=== PATIENT | female | born 1970 | race Caucasian/White ===

== ENCOUNTER 2017-10-22 15:09 | Outpatient (CLI) | payer OTHER ==
[2017-10-22 16:10] LABS: Hemoglobin 13.2 g/dL (12.0-16.0); Mean Corpuscular HGB CONC 34.5 g/dL (32.0-36.0); Mean Corpuscular Hemoglobin 29.7 pg (27.0-31.0); Mean Corpuscular Volume 86.2 fl (81.0-99.0); Mean Platelet Volume 8.2 fL (7.4-10.4); Platelet Count 276 thou/uL (130-400); RBC Distribution Width 11.9 % (11.5-14.5); Red Blood Cell (RBC) Count 4.44 mill/uL (4.20-5.40)
[2017-10-22 16:22] LABS: BHCG - Serum Negative (NEGATIVE); Pregs Control Background? CLEAR/WHITE (CLR/WHITE); Pregs Control Bar Appear? YES (CONTROL BAR)
== END 2017-10-22 15:10 | disposition home or self-care (01) ==
LOC: LABBT 15:09
PROVIDERS: ATTEND Surgery
DX: Z01.812 Encounter for preprocedural laboratory examination (principal); C50.919 Malignant neoplasm of unspecified site of unspecified female breast
CPT/HCPCS: 84703; 85027; 93005; 93010

== ENCOUNTER 2017-10-23 05:52 | Day surgery (SDC) | payer OTHER ==
[2017-10-22 15:25] VITALS: BMI 30.3
[2017-10-23] MEDS ORDERED: CEFAZOLIN/Water 2 GM/20 ML SYRINGE ONE (06:08)
[2017-10-23] MEDS ORDERED: Bupivacaine/Epinephrine 0.25% 30 ML VIAL ONE (06:33)
[2017-10-23] MEDS ORDERED: Midazolam HCl 2 mg/2 ml Vial ONE ×2 (07:02→07:08)
[2017-10-23] MEDS ORDERED: Fentanyl 250 MCG/5 ML VIAL ONE ×2 (07:08→08:46)
--- NOTE | 2017-10-23 09:00 | OP ---
PREOPERATIVE DIAGNOSIS: Breast cancer. SURGEON: Audie Liang M.D. PROCEDURE PERFORMED: MediPort placement. INDICATIONS: This is a 46-year-old female recently diagnosed to have node positive breast cancer nee ds chemotherapy. FINDINGS: Good backflow of venous blood. J-wire threaded easily. DESCRIPTION OF PROCEDURE: After informed consent was obtained, the patient was taken to the operatin g room and given general mask anesthesia and placed in the supine position. Her chest and neck were prepped and draped in the usual fashion and then she was placed in Trendelenburg position. Local ane sthesia infiltrated subcutaneously and deep and introducer needle was inserted in left subclavian wit h good backflow of venous blood. J-wire threaded easily. Fluoroscopy was used which showed good kimberli cement of the wire in the superior vena cava. Skin and subcu was anesthetized with local anesthesia. Transverse chest wall incision was performed. Subcu divided sharply with electrocautery down to th e fascia and a pocket created on the fascia with electrocautery. The tunneling device used to connec t the two incisions. The catheter brought through the tunnel. The catheter attached to the MediPort . The system was flushed. The peel-away introducer inserted over the wire. The wire removed. The catheter inserted through the peel-away introducer and the peel-away introducer removed. Initial x-r ay showed that the catheter was going across the chest into the right subclavian and was tilted up an d I could not get backflow of venous blood, so under fluoroscopy repositioned the catheter to go into the superior vena cava and aspirated system, good backflow of venous blood, flushed with heparinized saline. The subcutaneous reapproximated with interrupted 3-0 Vicryl. Skin closed with interrupted 4-0 Rapide. Dermabond applied. The patient tolerated the procedure well and was transferred to [facility] in good condition. Sponge and needle count verified correct x2.
--- NOTE | 2017-10-23 09:26 | RAD ---
CHEST 1 VIEW: Date: 10/23/17 HISTORY: MediPort placement. COMPARISON: 01/24/16. FINDINGS: Cardiac silhouette is magnified and enlarged. Pulmonary vasculature is engorged with patchy bibasilar infiltrates. Mediastinum is midline. Tip of a right subclavian MediPort is directed superiorly at th e level of the superior vena cava. No evidence of pneumothorax. IMPRESSION: 1. Distal tip of the left subclavian MediPort is directed superiorly within the superior vena cava. 2. Cardiomegaly with mild pulmonary vascular congestion. POS: [facility]
[2017-10-23] MEDS ORDERED: HYDROcodone/Acetaminophen 5/325 mg Tablet ONE (09:39)
[2017-10-23] MEDS ORDERED: Lidocaine 1% PF 5 ML VIAL ONE (14:17)
[2017-10-23] MEDS ORDERED: PROPOFOL 200 MG/20 ML VIAL ONE (14:17)
== END 2017-10-23 10:20 | disposition home or self-care (01) ==
LOC: SDC 05:52
PROVIDERS: ATTEND Surgery
PROC: 02HV33Z Insertion of Infusion Device into Superior Vena Cava, Percutaneous Approach (ICD-10-PCS; principal; 2017-10-23)
DX: C50.911 Malignant neoplasm of unspecified site of right female breast (principal); C77.9 Secondary and unspecified malignant neoplasm of lymph node, unspecified; I10 Essential (primary) hypertension; M32.9 Systemic lupus erythematosus, unspecified; F32.9 Major depressive disorder, single episode, unspecified; E11.9 Type 2 diabetes mellitus without complications; Z88.2 Allergy status to sulfonamides; Z88.8 Allergy status to other drugs, medicaments and biological substances; Z91.048 Other nonmedicinal substance allergy status; Z79.899 Other long term (current) drug therapy
CPT/HCPCS: 71045; 96374; C1788; J1642; J2001; J2250; J2704; J3010

== ENCOUNTER 2017-10-24 12:04 | Outpatient (CLI) | payer OTHER ==
[2017-10-24] MEDS ORDERED: Iopamidol 370 76% 100 ML VIAL ONE (13:36)
--- NOTE | 2017-10-24 15:32 | CT ---
CONTRAST ENHANCED CT IMAGES OF CHEST AND ABDOMEN AND PELVIS: HISTORY: A 46-year-old female with a history of breast cancer. FINDINGS: Contrast-enhanced CT images of the chest, abdomen, and pelvis are obtained. Surgical change is seen in the right breast. Multiple enhancing metastatic right axillary lymph node s are seen. The largest of these right axillary lymph nodes measures 1.9 x 2.6 cm. There is a left subclavian MediPort catheter in place. Numerous small lytic thoracic, lumbar, and sacral lesions seen compatible with tiny likely metastatic lesions throughout the spine. There is an approximately 3 mm nodular density along the posterior as pect of the left lower lobe of the lung with additional possible right lung base 2-3 mm nodular densi ties also seen. These may represent possible lung metastatic lesions, although they are too small to characterize. No definite evidence of mediastinal lymphadenopathy is seen. CT abdomen and pelvis demonstrate extensive too numerous to count, peripherally enhancing hepatic les ions compatible with extensive hepatic metastases. The spleen is unremarkable. The gallbladder and pancreas are unremarkable. Adrenal glands and kidneys are unremarkable. There is no evidence of par aaortic lymphadenopathy. No definite evidence of bowel obstruction seen. There does appear to be so me mildly enlarged right lower quadrant intraperitoneal mesenteric lymph nodes. The largest of these measures approximately 9 mm. Numerous descending and sigmoid colonic diverticula are present. IMPRESSION: 1. Surgical changes seen in the right breast with right axillary lymphadenopathy. 2. Tiny pulmonary parenchymal nodules too small to characterize, although considering other findings , metastatic disease cannot be excluded. 3. Numerous hepatic metastases. 4. Extensive lucency is seen throughout the thoracic, lumbar, and sacrum concerning for metastatic d isease. There are also some sclerotic changes seen in the medial aspect of the left iliac bone just lateral to the left SI joint. This may also represent possible sclerotic metastatic disease. Findings called to Dr. Hinton at 1:39 p.m. on 10/24/17. CODE CR POS: [facility]
== END 2017-10-24 12:05 | disposition home or self-care (01) ==
LOC: CT 12:04
PROVIDERS: ATTEND Internal Medicine Hematology & Oncology
DX: Z51.11 Encounter for antineoplastic chemotherapy (principal); C50.919 Malignant neoplasm of unspecified site of unspecified female breast; R59.0 Localized enlarged lymph nodes; C78.7 Secondary malignant neoplasm of liver and intrahepatic bile duct; R91.8 Other nonspecific abnormal finding of lung field; M89.9 Disorder of bone, unspecified; I08.1 Rheumatic disorders of both mitral and tricuspid valves; Z98.890 Other specified postprocedural states
CPT/HCPCS: 71260; 74177; 93306

== ENCOUNTER 2017-12-19 08:16 | Outpatient (CLI) | payer OTHER ==
--- NOTE | 2017-12-19 10:46 | RAD ---
FLUOROSCOPIC GUIDED LEFT CHEST WALL PORT TUBE CHECK: INDICATIONS: Malfunctioning port. TOTAL FLUOROSCOPIC TIME: 0.8 minutes TECHNIQUE/FINDINGS: The site overlying the port site was cleansed. The site was accessed with a 1.5 inch Eagle needle. The port flushed and aspirated appropriately. There was administration of 3 mL of Isovue-300, which demonstrated a patent left subclavian chest wall port, with the tip in the region of the SVC. There was no evidence of catheter pinch-off within the left subclavian area. The catheter was then flushed with normal saline. The catheter was then loaded with appropriate heparin. The patient tolerated t he procedure without difficulty. IMPRESSION: Mediport check demonstrates that the left subclavian chest wall port is intact without evidence of fi brin sheath or left subclavian pinch-off. The difficulty may have been in accessing the left chest w all port, as it was difficult to access the port by palpation. The port is slightly deep within the subcutaneous layer, making palpation difficult. The port was eventually accessed by a combination of palpation and fluoroscopic guidance, utilizing a 1.5 inch Eagle needle. The port access site was th en marked following the procedure, with a permanent marker, to give parameters of the port access sit e to the infusion nurse. POS: [facility]
== END 2017-12-19 08:17 | disposition home or self-care (01) ==
LOC: RAD 08:16
PROVIDERS: ATTEND Internal Medicine Hematology & Oncology
DX: T82.868A Thrombosis due to vascular prosthetic devices, implants and grafts, initial encounter (principal); T82.9XXA Unspecified complication of cardiac and vascular prosthetic device, implant and graft, initial encounter; C50.919 Malignant neoplasm of unspecified site of unspecified female breast
CPT/HCPCS: 76000; J1642

== ENCOUNTER 2018-01-20 09:27 | Outpatient (CLI) | payer OTHER ==
[2018-01-20] MEDS ORDERED: Iopamidol 370 76% 100 ML VIAL ONE (10:57)
--- NOTE | 2018-01-20 11:50 | CT ---
CT CHEST WITH IV CONTRAST CT ABDOMEN WITH IV CONTRAST CT PELVIS WITH IV CONTRAST: HISTORY: A 47-year-old female with malignant neoplasm of lower left quadrant of the right female breast. [place] st cancer with mets to bone and liver. The patient is currently on chemotherapy. COMPARISON: 10/24/17. FINDINGS: There has been interval resolution of right axillary lymphadenopathy seen on the previous exam. Inte rval improvement is seen in the liver metastasis with decrease in number and size of the liver lesion s. The largest liver lesion in the right lobe of the liver currently measures 17 mm (previously 28 m m). Multiple lytic lesions are noted in the skeleton noted on the previous exam demonstrate peripheral sc lerosis indicating response to treatment. No intrathoracic or abdominopelvic lymphadenopathy is seen. Tiny pulmonary nodules are stable, the l argest measuring 3 mm. No pleural or pericardial effusions or ascites is identified. The spleen, pancreas, adrenal glands, and right kidney are normal. Small cyst in the left kidney aga in seen. No gallstones are identified. The small bowel loops are not abnormally dilated. A normal- appearing appendix is present. There is colonic diverticulosis. Uterus and ovaries are present. IMPRESSION: Interval improvement since 10/24/17 with partial/incomplete response to therapy. POS: [facility]
== END 2018-01-20 09:28 | disposition home or self-care (01) ==
LOC: CT 09:27
PROVIDERS: ATTEND Internal Medicine Hematology & Oncology
DX: Z51.11 Encounter for antineoplastic chemotherapy (principal); C78.7 Secondary malignant neoplasm of liver and intrahepatic bile duct; C79.51 Secondary malignant neoplasm of bone; C50.311 Malignant neoplasm of lower-inner quadrant of right female breast; Z79.899 Other long term (current) drug therapy
CPT/HCPCS: 71260; 74177; 93306

== ENCOUNTER 2018-02-13 14:22 | Outpatient (CLI) | payer OTHER ==
[2018-02-13 15:47] LABS: ALT (SGPT) 27 U/L (8-55); AST (SGOT) 37 U/L (5-34); Albumin 3.5 g/dL (3.5-5.0); Alkaline Phosphatase 84 U/L (40-150); Anion Gap 15 mmol/L (10-20); BUN (Urea Nitrogen) 9 mg/dL (7.0-18.7); Bilirubin, Total 0.5 mg/dL (0.2-1.2); Calc. Creatinine Clearance 0 mL/min (70-130); Calcium 8.8 mg/dL (7.8-10.44); Carbon Dioxide 27 mmol/L (22-29); Chloride 102 mmol/L (98-107); Estimated GFR-MDRD 88; Globulin 2.4 g/dL (2.4-3.5); Glucose 188 mg/dL (70-105); Potassium 3.8 mmol/L (3.5-5.1); Protein, Total 5.9 g/dL (6.0-8.3); Sodium 140 mmol/L (136-145)
[2018-02-13 17:11] LABS: #Lymphocytes 1.1 thou/uL (1.20-3.40); #Monocytes 0.5 thou/uL (0.11-0.59); #Neutrophils 4.1 thou/uL (1.40-6.50); %Basophils 0.2 % (0.0-1.0); %Eosinophils 0.5 % (0.0-10.0); %Lymphocytes 19.9 % (21.0-51.0); %Monocytes 8.4 % (0.0-10.0); %Neutrophils 71.1 % (42.0-75.0); Anisocytosis SLIGHT = 6-15 cells (100X) (0-5/hpf); Hemoglobin 8.5 g/dL (12.0-16.0); MDiff Complete? YES; Mean Corpuscular HGB CONC 34.1 g/dL (32.0-36.0); Mean Corpuscular Volume 99.7 fL (78.0-98.0); Mean Platelet Volume 8.8 fL (7.4-10.4); PLT Morphology Comment Appears Decreased; Platelet Count 124 thou/uL (130-400); RBC Distribution Width 17.6 % (11.5-14.5); Red Blood Cell (RBC) Count 2.49 mill/uL (4.20-5.40); White Blood Cell (WBC) Count 5.8 thou/uL (4.8-10.8)
== END 2018-02-13 14:23 | disposition home or self-care (01) ==
LOC: LABBT 14:22
PROVIDERS: ATTEND Surgery
DX: Z01.812 Encounter for preprocedural laboratory examination (principal); C50.919 Malignant neoplasm of unspecified site of unspecified female breast; Z95.828 Presence of other vascular implants and grafts
CPT/HCPCS: 80053; 85025

== ENCOUNTER 2018-02-17 06:03 | Day surgery (SDC) | payer OTHER ==
[2018-02-13 14:58] VITALS: BMI 30.9
[2018-02-17] MEDS ORDERED: CEFAZOLIN/Water 2 GM/20 ML SYRINGE ONE (06:19)
[2018-02-17] MEDS ORDERED: Lidocaine 2% 10 ML INJ ONE (06:37)
[2018-02-17] MEDS ORDERED: Bupivacaine/Epinephrine 0.25% 30 ML VIAL ONE (06:37)
[2018-02-17] MEDS ORDERED: Fentanyl 100 MCG/2 ML VIAL ONE (06:48)
[2018-02-17] MEDS ORDERED: Midazolam HCl 2 mg/2 ml Vial ONE (07:02)
[2018-02-17] MEDS ORDERED: Propofol 500 MG/50 ML VIAL ONE (07:16)
--- NOTE | 2018-02-17 08:34 | OP ---
DATE OF PROCEDURE: 02/17/2018 PREOPERATIVE DIAGNOSIS: Painful MediPort. SURGEON: Audie Liang M.D. PROCEDURE PERFORMED: Removal and replacement of MediPort. INDICATIONS: This is a 47-year-old female who has metastatic breast cancer, needs another year of ch emotherapy. Her MediPort recently has been very painful and when they access it and infuse chemother apy it creates a severe burning pain in the tissue. They were unable to draw blood, but the tube tala dy showed that it was in good placement. FINDINGS: Good backflow of venous blood. J-wire threaded easily. Right subclavian on the left. Th ere was cloudy fluid around the MediPort that was sent for culture and the tip was also cultured. PROCEDURE: After informed consent was obtained, the patient was taken to the operating room and give n total intravenous anesthesia, placed in supine position. Her chest and neck were prepped and drape d in usual fashion. Local anesthesia infiltrated subcutaneously and deep. An introducer needle was inserted right subclavian with good backflow of venous blood. J-wire threaded easily. Fluoroscopy w as used, showed good placement in superior vena cava. The tubing was tunneled between the 2 incision s, connected to the MediPort. The MediPort was secured to the pectoralis fascia with interrupted 2-0 Prolene suture. The catheter was cut to size. The peel-away introducer was inserted over the wire. The wire was removed. The catheter inserted through the peel-away introducer and the peel-away int roducer removed. Fluoroscopy again performed that showed good placement in superior vena cava. The system was aspirated. Good backflow of venous blood, flushed with heparinized saline. Subcutaneous reapproximated with interrupted 3-0 Vicryl. Skin closed with a running subcuticular 4-0 Rapide. Rodrigue mabond applied. I then moved to the left side. Local anesthesia infiltrated subcutaneously and deep . A transverse skin incision was performed through the old scar. Subcutaneous divided sharply and t here was this fluid around the MediPort that was cloudy. I was not sure if this was infected fluid o r fat necrosis. This was sent for culture. The MediPort was removed including the catheter intact. The cavity was thoroughly irrigated with saline. A single 3-0 Vicryl was placed to occlude the acce ss tract of the catheter with a figure of eight. The wound was packed open with Betadine gauze and c overed with a dry gauze. The patient tolerated the procedure well and was transferred to recovery in good condition. Sponge, needle count verified correct x2.
[2018-02-17] MEDS ORDERED: HYDROcodone/Acetaminophen 5/325 mg Tablet ONE (10:06)
--- NOTE | 2018-02-17 10:47 | RAD ---
AP VIEW CHEST: INDICATIONS: History of Mediport placement. COMPARISON: 10/23/2017 FINDINGS: Since the comparison examination, the previously seen left subclavian chest wall port has been remove d. There is a new right subclavian chest wall port in place. The catheter appears intact and projec ts to the level of the cavoatrial junction. The lungs are clear. Cardiomegaly is stable. No pneumo thorax is demonstrated. No acute osseous abnormality is noted. IMPRESSION: 1. Interval placement of a new right subclavian chest wall port without evidence of complication. 2. Previously seen left chest wall port has been removed. 3. Stable cardiomegaly. 4. No pneumothorax. POS: [facility]
[2018-02-17] MEDS ORDERED: PROPOFOL 200 MG/20 ML VIAL ONE (15:00)
[2018-02-17] MEDS ORDERED: Lidocaine 1% PF 5 ML VIAL ONE (15:00)
== END 2018-02-17 10:35 | disposition home or self-care (01) ==
LOC: SDC 06:03
PROVIDERS: ATTEND Surgery
PROC: 05H633Z Insertion of Infusion Device into Left Subclavian Vein, Percutaneous Approach (ICD-10-PCS; principal; 2018-02-17)
DX: T82.848A Pain due to vascular prosthetic devices, implants and grafts, initial encounter (principal); C50.919 Malignant neoplasm of unspecified site of unspecified female breast; I10 Essential (primary) hypertension; Z79.899 Other long term (current) drug therapy; Z88.2 Allergy status to sulfonamides
CPT/HCPCS: 71045; 87070; 87071; 87205; C1788; J1642; J2001; J2250; J2704; J3010

== ENCOUNTER 2018-06-02 13:00 | Outpatient (CLI) | payer OTHER, SELFPAY ==
[2018-06-02] MEDS ORDERED: Iopamidol 370 76% 100 ML VIAL ONE (13:32)
--- NOTE | 2018-06-02 16:30 | CT ---
CHEST CT WITH CONTRAST: ABDOMEN CT WITH CONTRAST: PELVIS CT WITH CONTRAST: HISTORY: Breast cancer with metastases to the spine, ribs, and liver. The patient is currently off chemothera py. Evaluate for progression of disease. COMPARISON: 01/20/2018 and 10/24/2017 TECHNIQUE: Chest, abdomen, and pelvis CT are performed with IV and oral contrast. Reformatted images are submit christopher for interpretation. FINDINGS: CHEST: No mediastinal mass, lymphadenopathy, or hematoma. Heart size is within normal limits. No p ericardial effusion. The thoracic and abdominal aorta have a normal caliber. No periaortic fat stra nding. The trachea and central bronchi are patent. There is a 3 mm nodule in the left lower lobe. No suspi cious nodules in the left upper lobe. No suspicious nodules in the right upper lobe or right middle lobe. There is a 2 mm nodule in the right lower lobe. ABDOMEN: Fatty infiltration of the liver. There are patchy areas of enhancement, with central hypoa ttenuation, suggesting hepatic metastases. The overall size and number of metastatic lesions in the liver has significantly reduced when compared to the examination from October 2017. When compared to t he examination from January 2018, there appears to be stability in terms of the size of what was previou sly the largest metastatic lesion, in the posterior segment, right hepatic lobe. Currently, this les ion measures 1.1 x 1.1 cm (previously measuring 1.7 x 0.8 cm). Additional smaller metastatic lesions are noted involving the hepatic dome. These lesions are less than a centimeter in size. There are patchy areas of enhancement in the liver parenchyma, which are nonspecific. The spleen, pancreas, and adrenal glands are unremarkable. Stable atrophy of the pancreas. The gall bladder is unremarkable. Symmetric enhancement of the kidneys. No obstructive uropathy. No retroperitoneal mass, lymphadenopathy, or hematoma. Symmetric attenuation of the psoas muscles. No gastrohepatic, retrocrural, or periportal lymphadenopathy. No mesenteric mass, lymphadenopathy, free air, or free fluid. The gastric mucosa, duodenum, and multiple normal caliber small bowel loops are noted. The ileocecal junction is normal. There is scattered fecal material in a nondistended, nondilated colon. There i s evidence of diverticulosis in the left hemicolon. No diverticulitis. Normal caliber appendix. PELVIS: No mass, lymphadenopathy, free air, or free fluid. Previously noted multifocal osseous metastases is less evident on the current examination. IMPRESSION: 1. Stable lung parenchymal nodules, which are too small to further characterize. 2. Hepatic steatosis. 3. Essentially stable metastatic lesions in the liver. The largest lesion is in the posterior segme nt, right hepatic lobe, and has not appreciably changed in size. There are some subcentimeter hypode nsities in the hepatic dome, which are felt to represent areas of metastases. 4. No definite evidence of osseous metastases. POS: [facility]
== END 2018-06-02 13:01 | disposition home or self-care (01) ==
LOC: CT 13:00
PROVIDERS: ATTEND Internal Medicine Hematology & Oncology
DX: Z51.11 Encounter for antineoplastic chemotherapy (principal); C50.311 Malignant neoplasm of lower-inner quadrant of right female breast; C78.7 Secondary malignant neoplasm of liver and intrahepatic bile duct; R91.8 Other nonspecific abnormal finding of lung field; I08.1 Rheumatic disorders of both mitral and tricuspid valves; Z79.899 Other long term (current) drug therapy
CPT/HCPCS: 71260; 74177; 93306

== ENCOUNTER 2018-06-09 12:58 | Outpatient (CLI) | payer OTHER ==
--- NOTE | 2018-06-09 16:10 | NM ---
MUGA SCAN: DATE: 06/09/18 HISTORY: 47-year-old female with breast cancer, encounter for follow-up examination after completed treatment for malignant neoplasm. RADIOPHARMACEUTICAL: 28.1 mCi technetium-99m labeled RBCs injected intravenously. FINDINGS: The left ventricular ejection fraction measures 53%. The wall motion is normal. IMPRESSION: LVEF is 53%. POS: [facility]
== END 2018-06-09 12:59 | disposition home or self-care (01) ==
LOC: NM 12:58
PROVIDERS: ATTEND Internal Medicine Hematology & Oncology
DX: C50.311 Malignant neoplasm of lower-inner quadrant of right female breast (principal)
CPT/HCPCS: 78472; A9604

== ENCOUNTER 2018-06-11 08:38 | Day surgery (SDC) | payer OTHER, SELFPAY ==
[2018-06-11] MEDS ORDERED: Sodium Chloride 0.9% 20 ML ONE (08:48)
[2018-06-11] MEDS ORDERED: TRASTUZUMAB IVPB SCH ×3 (09:00→09:30)
[2018-06-11] MEDS ORDERED: SODIUM CHLORIDE 0.9% IVPB SCH ×3 (09:00→09:30)
[2018-06-11 09:04] VITALS: BP 140/82; TEMP 99.6
== END 2018-06-11 12:19 | disposition home or self-care (01) ==
LOC: ONC/OP 08:38
PROVIDERS: ATTEND Internal Medicine Hematology & Oncology
DX: Z51.11 Encounter for antineoplastic chemotherapy (principal); C50.311 Malignant neoplasm of lower-inner quadrant of right female breast; D70.1 Agranulocytosis secondary to cancer chemotherapy; Z88.2 Allergy status to sulfonamides
CPT/HCPCS: 96413; J1642; J7050; J9355

== ENCOUNTER 2018-06-11 12:49 | Outpatient (CLI) | payer OTHER ==
--- NOTE | 2018-06-11 15:59 | MRI ---
MRI BRAIN WITHOUT AND WITH CONTRAST: Comparison: CT chest, abdomen, and pelvis 06-02-18. History: Slurred speech, evaluate for intracranial metastases. Technique: Multiplanar, multisequence MRI images were obtained of the brain without and with IV contr ast. FINDINGS: There are innumerable scattered enhancing masses throughout both cerebral and cerebellar hemispheres consistent with diffuse intracranial metastatic disease. The largest lesion is seen in the right temp oral lobe measuring 1.6 cm in size. Edema is seen surrounding the majority of these masses. This oren a is greatest in the left frontal lobe and bilateral temporal lobes. No midline shift is seen. There is no evidence of hydrocephalus or extraaxial fluid collections. No intracranial hemorrhage is seen. No restricted diffusion is seen. The expected flow voids are present. Mucous retention cysts are seen in the left maxillary sinus. The calvarium and overlying soft tissues are unremarkable. A small amount of fluid is seen in the right mastoid air cells. IMPRESSION: Innumerable intracranial metastatic foci throughout the brain as above. POS: [facility]
== END 2018-06-11 12:50 | disposition home or self-care (01) ==
LOC: BICMRI 12:49
PROVIDERS: ATTEND Internal Medicine Hematology & Oncology
DX: R51 Headache (principal); R20.2 Paresthesia of skin; C50.919 Malignant neoplasm of unspecified site of unspecified female breast
CPT/HCPCS: 70553; 82565

== ENCOUNTER 2018-07-02 12:44 | Day surgery (SDC) | payer OTHER ==
[2018-07-02] MEDS ORDERED: Sodium Chloride 0.9% 30 ML ONE (12:57)
[2018-07-02] MEDS ORDERED: Sodium Chloride 0.9% 20 ML ONE (13:01)
[2018-07-02 13:11] VITALS: BP 128/66; TEMP 98
[2018-07-02] MEDS ORDERED: SODIUM CHLORIDE 0.9% IVPB SCH (13:30)
[2018-07-02] MEDS ORDERED: TRASTUZUMAB IVPB SCH (13:30)
== END 2018-07-02 15:21 | disposition home or self-care (01) ==
LOC: ONC/OP 12:44
PROVIDERS: ATTEND Internal Medicine Hematology & Oncology
DX: Z51.11 Encounter for antineoplastic chemotherapy (principal); C50.311 Malignant neoplasm of lower-inner quadrant of right female breast; D70.1 Agranulocytosis secondary to cancer chemotherapy; Z88.2 Allergy status to sulfonamides
CPT/HCPCS: 96413; J1642; J7050; J9355

== ENCOUNTER 2018-10-08 00:17 | Day surgery (SDC) | payer BC ==
[2018-10-08] MEDS ORDERED: TRASTUZUMAB IVPB SCH (02:45)
[2018-10-08] MEDS ORDERED: SODIUM CHLORIDE 0.9% IVPB SCH (02:45)
[2018-10-08] MEDS ORDERED: Sodium Chloride 0.9% 20 ML ONE (13:22)
== END 2018-10-08 15:35 | disposition home or self-care (01) ==
LOC: ONC/OP 00:17
PROVIDERS: ATTEND Internal Medicine Hematology & Oncology
DX: Z51.11 Encounter for antineoplastic chemotherapy (principal); C50.311 Malignant neoplasm of lower-inner quadrant of right female breast; D70.1 Agranulocytosis secondary to cancer chemotherapy; Z88.2 Allergy status to sulfonamides
CPT/HCPCS: 96413; J1642; J7050; J9355

== ENCOUNTER 2018-10-22 12:51 | Outpatient (CLI) | payer BC ==
[~2018-10-22 12:51] MED LIST: Gadobenate Dimeglumine 529 MG/1 ML (20ML VIAL) ONE
--- NOTE | 2018-10-22 14:52 | MRI ---
PRE AND POSTCONTRAST ENHANCED MRI IMAGES BRAIN: DATE: 10/22/2018. COMPARISON: Comparison is made to previous exam from 06/11/2018. HISTORY: A 47-year-old with a history of brain metastatic lesions, breast cancer. C71.9 and C50.311. FINDINGS: Multiplanar, multisequence pre- and postcontrast-enhanced MRI images of the brain obtained. Pre- and postcontrast-enhanced MRI images of the brain demonstrate innumerable supra- and infratentor ial bilateral enhancing intracranial mass lesions with surrounding areas of vasogenic edema. The lar gest of these lesions is in the posterior aspect of the right frontal lobe measuring 1.6 cm in diamet er. The overall size of this has not significantly changed. There are numerous lesions, too numerou s to count supra- and infratentorially. Extensive areas of surrounding vasogenic edema is present. No evidence of midline shift seen. IMPRESSION: Numerous intracranial metastatic disease, not significantly changed since the previous comparison exa m. The number and sizes of the lesions are unchanged. Findings called to Dr. Hinton' office at 2:05 p.m. on 10/22/2018. CODE CR POS: [facility]
== END 2018-10-22 12:52 | disposition home or self-care (01) ==
LOC: SCSMRI 12:51
PROVIDERS: ATTEND Internal Medicine Hematology & Oncology
DX: C50.311 Malignant neoplasm of lower-inner quadrant of right female breast (principal); C79.31 Secondary malignant neoplasm of brain
CPT/HCPCS: 70553; 82565; A9577

== ENCOUNTER 2018-10-29 11:37 | Day surgery (SDC) | payer BC ==
[~2018-10-29 11:37] MED LIST changes: -Gadobenate Dimeglumine 529 MG/1 ML (20ML VIAL) ONE; +SODIUM CHLORIDE 0.9% IVPB SCH; +TRASTUZUMAB IVPB SCH
[2018-10-29] MEDS ORDERED: Sodium Chloride 0.9% 20 ML ONE (12:33)
[2018-10-29 12:54] VITALS: BP 146/86; TEMP 97.9
== END 2018-10-29 15:18 | disposition home or self-care (01) ==
LOC: ONC/OP 11:37
PROVIDERS: ATTEND Internal Medicine Hematology & Oncology
DX: Z51.12 Encounter for antineoplastic immunotherapy (principal); C50.311 Malignant neoplasm of lower-inner quadrant of right female breast; D70.1 Agranulocytosis secondary to cancer chemotherapy; Z88.2 Allergy status to sulfonamides; Z91.048 Other nonmedicinal substance allergy status; Z17.1 Estrogen receptor negative status [ER-]
CPT/HCPCS: 96413; J7050; J9355

== ENCOUNTER 2018-11-18 20:27 | Inpatient (IN) | payer BC ==
[2018-11-18] MEDS ORDERED: Acetaminophen 500 MG TAB ONE (20:59)
[2018-11-18 21:03] LABS: #Lymphocytes 0.8 thou/uL (1.20-3.40); #Monocytes 0.5 thou/uL (0.11-0.59); #Neutrophils 4.4 thou/uL (1.40-6.50); %Eosinophils 0.5 % (0.0-10.0); %Lymphocytes 13.9 % (21.0-51.0); %Monocytes 8.4 % (0.0-10.0); %Neutrophils 77.2 % (42.0-75.0); Hemoglobin 12.2 g/dL (12.0-16.0); Mean Corpuscular HGB CONC 33.2 g/dL (32.0-36.0); Mean Corpuscular Hemoglobin 29.6 pg (27.0-31.0); Mean Corpuscular Volume 89.2 fL (78.0-98.0); Mean Platelet Volume 7.4 fL (7.4-10.4); Platelet Count 208 thou/uL (130-400); RBC Distribution Width 13.5 % (11.5-14.5); Red Blood Cell (RBC) Count 4.11 mill/uL (4.20-5.40); White Blood Cell (WBC) Count 5.7 thou/uL (4.8-10.8)
--- NOTE | 2018-11-18 21:10 | RAD ---
PA AND LATERAL VIEWS OF THE CHEST: HISTORY: Cough and fever COMPARISON: 01/24/2016 FINDINGS: The heart is enlarged. The lungs are expanded without focal areas of consolidation, pneumothoraces, f rank pulmonary edema or pleural effusions. There is a right subclavian Port-A-Cath with tip in the pr ojection of the SVC. No acute osseous abnormalities are seen. IMPRESSION: No acute process.
[2018-11-18 21:28] LABS: ALT (SGPT) 27 U/L (8-55); AST (SGOT) 21 U/L (5-34); Albumin 3.8 g/dL (3.5-5.0); Alkaline Phosphatase 89 U/L (40-150); Anion Gap 14 mmol/L (10-20); BUN (Urea Nitrogen) 23 mg/dL (7.0-18.7); Bilirubin, Total 0.6 mg/dL (0.2-1.2); CK (CPK) 40 U/L (29-168); Calc. Creatinine Clearance 0 mL/min (70-130); Carbon Dioxide 24 mmol/L (22-29); Chloride 103 mmol/L (98-107); Estimated GFR-MDRD 51; Globulin 2.9 g/dL (2.4-3.5); Glucose 129 mg/dL (70-105); Potassium 3.7 mmol/L (3.5-5.1); Protein, Total 6.7 g/dL (6.0-8.3); Sodium 137 mmol/L (136-145)
[2018-11-18] MEDS ORDERED: Piperacillin/Tazobactam 4.5 GM VIAL ONE (22:08)
--- NOTE | 2018-11-18 22:34 | PDOC.FPRHP ---
- History of Present Illness Chief Complaint: cough History of Present Illness: 47 yo F with PMH of breast CA who presents with cough. Started 10 days ago, productive with green sputum, associate dyspnea. Sxs have not improved. Subjective home fevers, dec po intake, rhinorrhea. PMH significant for breast CA in which she has been receiving chemotherapy and immunotherapy. Patient recently had left gluteal abscess drained 5 days ago, completed abx course. Denies noticing any drainage. Culture from that sample has grown out MSSA. - Allergies/Adverse Reactions Allergies Allergy/AdvReac Type Severity Reaction Status Date / Time citric acid Allergy Unknown Verified 11/19/18 00:41 Sulfa (Sulfonamide Allergy Unknown Verified 11/19/18 00:41 Antibiotics) - Home Medications Medication Instructions Recorded Confirmed Type Atorvastatin Calcium [Lipitor] 20 mg PO HS 10/22/17 11/19/18 History Citalopram Hydrobromide 40 mg PO QAM 10/22/17 11/19/18 History [Citalopram HBr] Losartan Potassium 50 mg PO QAM 10/22/17 11/19/18 History HYDROcodone/Acetaminophen [[place] 1 each PO Q4HR PRN 02/13/18 11/19/18 History 10-325 Tablet] Lorazepam [Ativan] 0.5 mg PO PRN PRN 02/13/18 11/19/18 History traMADol HCl [Tramadol HCl] 50 mg PO Q6HR PRN 02/13/18 11/19/18 History BuPROPion XL [Wellbutrin XL] 150 mg PO QAM 11/19/18 11/19/18 History Dexamethasone [Decadron] 4 mg PO BID 11/19/18 11/19/18 History Memantine HCl [Namenda] 10 mg PO BID 11/19/18 11/19/18 History Omeprazole 20 g PO BID 11/19/18 11/19/18 History Omeprazole/Sodium Bicarbonate 20 mg PO BID 11/19/18 History [Omeprazole-Bicarb 20-1,100 Cap] Potassium Chloride [K-Dur] 20 meq PO DAILY 11/19/18 11/19/18 History levETIRAcetam [Keppra] 500 mg PO BID 11/19/18 11/19/18 History - History PMHx: HTN, Ductal CA with brain mets & resolved spine & rib mets, HLD, SLE, preDM PSHx: denies FHx: HTN, Breast CA Social: denies e/t/d - Review of Systems General: reports: fever/chills, weight/appetite/sleep changes. denies: night sweats Eyes: denies: eye pain ENT: reports: nasal congestion, rhinorrhea Respiratory: reports: cough, congestion, shortness of breath Cardiovascular: denies: chest pain Gastrointestinal: denies: nausea, vomiting, diarrhea Genitourinary: denies: dysuria, discharge Skin: denies: rashes, lesions Musculoskeletal: denies: tenderness, stiffness, swelling Neurological: denies: numbness, syncope, seizure Psychological: denies: anxiety, depression - Vital signs BP: [98/60] HR: [80] RR: [18] Tmax: [98.5] Pox: [95]% on [RA] Wt: [81kg] - Physical Exam Constitutional: NAD, awake, alert and oriented, well developed -Constitutional: wearing glasses HEENT: normocephalic and atraumatic, PERRLA, no scleral icterus, grossly normal vision, normal nasal mucosa, MMM Neck: supple, FROM, trachea midline Chest: no-tender to palpation, no lesions -Chest: port Heart: RRR, normal S1/S2, no murmurs/rubs/gallops, no edema -Heart: diffuse inspiratory crackles Lungs: no respiratory distress Abdomen: soft, non-tender, bowel sounds present Musculoskeletal: normal structure, ROM grossly normal Neurological: no focal deficit, normal sensation Skin: good turgor, capillary refill <2 seconds -Skin: on right gluteal area: 3cm drained abscess, no fluctuance or drainage, surrounding erythema Heme/Lymphatic: no unusual bruising or bleeding, no purpura Psychiatric: normal mood and affect, good judgment and insight, intact recent and remote memory FMR H&P: Results - Labs Result Diagrams: 11/19/18 01:59 11/19/18 01:59 Lab results: WBC 5.7 thou/uL (4.8-10.8) 11/18/18 20:46 Hgb 12.2 g/dL (12.0-16.0) 11/18/18 20:46 Hct 36.7 % (36.0-47.0) 11/18/18 20:46 MCV 89.2 fL (78.0-98.0) 11/18/18 20:46 Plt Count 208 thou/uL (130-400) 11/18/18 20:46 Neutrophils % 77.2 % (42.0-75.0) H 11/18/18 20:46 Sodium 137 mmol/L (136-145) 11/18/18 20:47 Potassium 3.7 mmol/L (3.5-5.1) 11/18/18 20:47 Chloride 103 mmol/L (98-107) 11/18/18 20:47 Carbon Dioxide 24 mmol/L (22-29) 11/18/18 20:47 BUN 23 mg/dL (7.0-18.7) H 11/18/18 20:47 Creatinine 1.15 mg/dL (0.6-1.1) H 11/18/18 20:47 Glucose 129 mg/dL (70-105) H 11/18/18 20:47 Lactic Acid 1.1 mmol/L (0.5-2.2) 11/18/18 20:46 Calcium 9.0 mg/dL (7.8-10.44) 11/18/18 20:47 Total Bilirubin 0.6 mg/dL (0.2-1.2) 11/18/18 20:47 AST 21 U/L (5-34) 11/18/18 20:47 ALT 27 U/L (8-55) 11/18/18 20:47 Alkaline Phosphatase 89 U/L (40-150) 11/18/18 20:47 Creatine Kinase 40 U/L (29-168) 11/18/18 20:47 Serum Total Protein 6.7 g/dL (6.0-8.3) 11/18/18 20:47 Albumin 3.8 g/dL (3.5-5.0) 11/18/18 20:47 - EKG Interpretation EKbpm, NSR - Radiology Interpretation Chest x-ray Status: image reviewed by me, report reviewed by me FMR H&P: A/P - Problem List (1) Sepsis Current Visit: Yes Status: Acute Code(s): A41.9 - SEPSIS, UNSPECIFIED ORGANISM (2) Pneumonia Current Visit: Yes Status: Acute Code(s): J18.9 - PNEUMONIA, UNSPECIFIED ORGANISM (3) Breast cancer metastasized to brain Current Visit: Yes Status: Acute Code(s): C50.919 - MALIGNANT NEOPLASM OF UNSP SITE OF UNSPECIFIED FEMALE BREAST; C79.31 - SECONDARY MALIGNANT NEOPLASM OF BRAIN (4) SLE (systemic lupus erythematosus related syndrome) Current Visit: Yes Status: Acute Code(s): M32.9 - SYSTEMIC LUPUS ERYTHEMATOSUS, UNSPECIFIED (5) HTN (hypertension) Current Visit: Yes Status: Acute Code(s): I10 - ESSENTIAL (PRIMARY) HYPERTENSION (6) HLD (hyperlipidemia) Current Visit: Yes Status: Acute Code(s): E78.5 - HYPERLIPIDEMIA, UNSPECIFIED (7) Borderline diabetes Current Visit: No Status: Acute Code(s): R73.09 - OTHER ABNORMAL GLUCOSE - Plan 47 yo F with ductal CA of breast with mets to brain admitted for sepsis 2/2 PNA vs. cellulitis Sepsis 2/2 PNA vs. cellulitis -febrile & tachycardic in ED -No white count however on immunomodulating therapy & chemo -clinical dx of PNA or cellulitis as possible sources -cellulitis, wound growing MSSA -s/p 1L in ED, responded well, will start mIVF -s/p vanc & zosyn in ED-continue zosyn, since cx grew MSSA, will not start vanc at this time -pending wound & blood culture -pending UA/UCx MARISABEL on CKD -from jul po intake -IVF, AM BMP HER2+ Invasive ductal CA with mets to brain -courtesy consult Dr. Hinton SLE -MD aware, continue home meds HTN -MD aware, will hold po antihypertensives since MARISABEL -consider restart after BMP today HLD -continue home meds diet: CC/HH dvt ppx: lovenox gi ppx: home omeprazole code: full dispo: >2 MN discussed w/ dr. 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 Of note, pt currently receiving chemotherapy set up by Dr. Hinton. Pt visited her PCP's office on 11/04 for I&D and packing of abscess on her left medial thigh. Wound culture revealed MSSA and pt completed a course of Clindamycin. Pt still reports some redness and pain to the area but denies any further drainage. PCP: Yasmine Youssef MD - Pertinent findings HR 109, Tmax 100.5 oral, otherwise VSS Gen: well appearing in NAD Skin: 3cm area of erythema on left posterior thigh with TTP. No drainage or fluctuance. - Plan Date/Time: 11/18/18 [id number] I, Audie Roth MD PGY3, have evaluated this patient and agree with findings/ plan as outlined by manager internet resident. Pertinent changes/additions are listed here. 1. Sepsis syndrome in setting of immunosuppression likely 2/2 PNA vs cellulitis -Pt presents with metastatic stage IV breast CA actively undergoing chemotherapy. Pt presented with fever, mild tachycardia, and likely source with clinical dx of PNA and recent abscess I&D. Pt's ANC is 4389 cell/microL which is normal and indicates no neutropenic fever. Pt's MASCC score is 26 which indicates low risk for a poor outcome. -Blood cultures obtained from port and peripherally. UA and urine culture also pending. -Obtain procalcitonin. -With pt's complaints of cough, obtain respiratory viral panel. -Pt received fluid bolus in ER, continue mIVF at this time. -Continue broad spectrum abx at this time but with outpatient wound culture revealing MSSA, can likely discontinue vancomycin and treat with single agent such as Zosyn. -Consider courtesy consult to Dr. Hinton in AM. 2. MARISABEL on CKD2 -Likely secondary to above. IVF and continue to monitor. 3. HER2+ Invasive Ductal Carcinoma of right breast with brain metastases -Observe neutropenic precautions although pt does not technically meet criteria for neutropenic fever. -Pt reportedly to start new chemotherapy tomorrow AM. -Consider courtesy consult to oncology per above. FULL code PPx: Lovenox for VTE, no GI indicated. Disposition: Admit to inpatient medical for anticipated length of stay greater than two midnights, pending clinical course. Addendum - Attending - Attending Attestation Date/Time: 11/19/18 1050 I personally evaluated the patient and discussed the management with Dr. villasenor early this morning. I agree with the History, Examination, Assessment and Plan documented above with any addition or exceptions noted below.
[2018-11-19] MEDS ORDERED: Ondansetron PF 4 MG/2 ML Vial IVP PRN (00:38)
[2018-11-19] MEDS ORDERED: Ondansetron ODT 4 MG TAB SL PRN (00:38)
[2018-11-19] MEDS ORDERED: Acetaminophen 325 MG TAB PO PRN (00:38)
[2018-11-19 00:42] VITALS: BMI 28.8
[2018-11-19] MEDS: Lactated Ringer's 1,000 ML IV SCH ×3 (02:03→21:08)
[2018-11-19 02:31] LABS: Anion Gap 14 mmol/L (10-20); BUN (Urea Nitrogen) 20 mg/dL (7.0-18.7); Calc. Creatinine Clearance 97 mL/min (70-130); Calcium 7.8 mg/dL (7.8-10.44); Carbon Dioxide 20 mmol/L (22-29); Chloride 108 mmol/L (98-107); Estimated GFR-MDRD 64; Glucose 120 mg/dL (70-105); Potassium 3.5 mmol/L (3.5-5.1); Sodium 138 mmol/L (136-145)
[2018-11-19 02:39] LABS: Band 14 % (5-11); Hemoglobin 11.1 g/dL (12.0-16.0); Lymphocytes 11 % (21-51); MDiff Complete? YES; Mean Corpuscular Hemoglobin 30.1 pg (27.0-31.0); Mean Corpuscular Volume 88.4 fL (78.0-98.0); Mean Platelet Volume 7.3 fL (7.4-10.4); Neutrophil 72 % (42-75); Platelet Count 145 thou/uL (130-400); Platelet Morphology Comment Appears Adequate; RBC Distribution Width 13.5 % (11.5-14.5); RBC Morphology Normal; Reactive Lymphocytes 3 % (0-10); White Blood Cell (WBC) Count 5.2 thou/uL (4.8-10.8)
[2018-11-19] MEDS ORDERED: traMADol HCl 50 MG TAB PO PRN (03:32)
[2018-11-19] MEDS: Piperacillin/Tazobactam 3.375 GM in Sodium Chloride 0.9% 100 ML IVPB SCH ×4 (04:33→21:14)
--- NOTE | 2018-11-19 07:19 | PDOC.FM ---
- Subjective Subjective: NAEO. Patient states that she feels much better this morning. She was able to rest overnight. Denies SOB, chest pain, palpitations, no cough, fever, chills, nvd. Patient tolerating PO. - Objective MAR Reviewed: Yes Vital Signs & Weight: Vital Signs (12 hours) Temp Pulse Resp BP Pulse Ox 11/19/18 04:07 98.5 F 80 18 161/64 H 93 L 11/19/18 01:00 95 11/19/18 00:43 98.8 F 74 18 112/57 L 95 Weight Weight 81.193 kg Result Diagrams: 11/19/18 01:59 11/19/18 01:59 Phys Exam - Physical Examination Constitutional: NAD HEENT: PERRLA, moist MMs, sclera anicteric Neck: full ROM Respiratory: no wheezing, no rales, no rhonchi, clear to auscultation bilateral Cardiovascular: RRR, no significant murmur Gastrointestinal: soft, non-tender, no distention, positive bowel sounds Musculoskeletal: no edema Neurological: moves all 4 limbs Psychiatric: normal affect, A&O x 3 Skin: no rash, normal turgor, cap refill <2 seconds Deviation from normal: left gluteal erythema, no flunctuance, covered with tagaderm -: purulent materal at the wound surface, about 2cm x 2cm Dx/Plan (1) Breast cancer metastasized to brain Code(s): C50.919 - MALIGNANT NEOPLASM OF UNSP SITE OF UNSPECIFIED FEMALE BREAST ; C79.31 - SECONDARY MALIGNANT NEOPLASM OF BRAIN Status: Acute (2) HLD (hyperlipidemia) Code(s): E78.5 - HYPERLIPIDEMIA, UNSPECIFIED Status: Acute (3) HTN (hypertension) Code(s): I10 - ESSENTIAL (PRIMARY) HYPERTENSION Status: Acute (4) Pneumonia Code(s): J18.9 - PNEUMONIA, UNSPECIFIED ORGANISM Status: Acute (5) Sepsis Code(s): A41.9 - SEPSIS, UNSPECIFIED ORGANISM Status: Acute - Plan Plan: 47 yo F with ductal CA of breast with mets to brain admitted for sepsis 2/2 PNA vs. cellulitis Sepsis 2/2 PNA vs. cellulitis - febrile & tachycardic in ED - No white count however on immunomodulating therapy & chemo - clinical dx of PNA or cellulitis as possible sources; PNA less likely at this time - cellulitis, wound growing MSSA - s/p 1L in ED, responded well, will start mIVF - s/p vanc & zosyn in ED- continue zosyn only, since cx grew MSSA - CXR: no acute findings - pending wound & blood culture - pending UA/UCx MARISABEL on CKD Likely due to decreased po intake - IVF, Cr improved HER2+ Invasive ductal CA with mets to brain - courtesy consult Dr. Jamaal HUTCHINSON - aware, continue home meds HTN - MD aware, will hold po antihypertensives since MARISABEL - Will restart home meds as Cr improved HLD - continue home meds diet: CC/HH dvt ppx: lovenox gi ppx: home omeprazole code: full dispo: >2 MN Addendum - Attending - Attending Attestation Date/Time: 11/19/18 3350 I personally evaluated the patient and discussed the management with Dr. Bass I agree with the History, Examination, Assessment and Plan documented above with any addition or exceptions noted below. Discussed group home prognosis with palliative today. CXR doesnt favor PNA patient endorses recent URTI and teeth caries secondary to XRT..Left posterior thigh wound of concern as recurrence noted rec US for convalescence of inflammation . Exam left posterior thigh no abscess swelling noticed at present prior MSSA rec longer course antibiotic treatment and notify ONC of patient admission feel could convert po antibiotic soon if patient continues stable.
[2018-11-19] MEDS: Enoxaparin Sodium 40 MG/0.4 ML SYRINGE SC SCH (07:46)
[2018-11-19] MEDS: levETIRAcetam 500 MG TAB PO SCH ×2 (07:46→21:07)
[2018-11-19] MEDS: HYDROcodone/Acetaminophen 10/325 mg Tablet PO PRN ×2 (07:46→21:06)
[2018-11-19] MEDS ORDERED: OMEPRAZOLE PO SCH (09:00)
[2018-11-19] MEDS ORDERED: SODIUM BICARBONATE PO SCH (09:00)
[2018-11-19] MEDS ORDERED: [UNRECOGNIZED DRUG - OTHER] PO SCH (09:00)
[2018-11-19] MEDS: Fluticasone Propionate Nasal Spray 16 gm Bottle NASAL SCH (10:30)
[2018-11-19] MEDS: Dexamethasone 4 MG TAB PO SCH ×2 (10:31→21:07)
[2018-11-19] MEDS: Losartan 25 MG TAB PO SCH (10:31)
[2018-11-19] MEDS: Citalopram 20 MG TAB PO SCH (10:31)
[2018-11-19] MEDS: Potassium Chloride 20 MEQ TAB PO SCH (10:31)
[2018-11-19] MEDS: traMADol HCl 50 MG TAB PO PRN ×2 (10:39→15:52)
--- NOTE | 2018-11-19 13:01 | CON ---
DATE OF CONSULTATION: REASON FOR CONSULT: Breast cancer. HISTORY OF PRESENT ILLNESS: Ms. Aguilar is a 47-year-old female with metastatic breast cancer. She was diagnosed in 2017 and underwent treatment with Taxotere, carboplatin, and Herceptin. In May 2013, she had bilateral brain metastases. She underwent whole-brain radiation. She had recent progression on MRI this past October. She has been on maintenance Herceptin over the past several months and has been switched to Kadcyla. She was due for her first dose today. Over the past several days, she has had upper respiratory symptoms including a cough and fever. She presented to the emergency room for these complaints. She was febrile and tachycardic in the emergency room and admitted for sepsis. She has started on antibiotics and has been afebrile since admission. She complains of cough and nasal congestion and overall fatigue. She denies any chest pain, abdominal discomfort, or headache. PAST MEDICAL HISTORY: 1. Stage 4 HER2 positive invasive ductal carcinoma with brain metastases. 2. Diabetes mellitus type 2. 3. Hypertension. 4. Anxiety and depression. 5. Lupus. PAST SURGICAL HISTORY: 1. MediPort placement. 2. Breast biopsy. ALLERGIES: TO SULFA. HOME MEDICATIONS: 1. Lipitor 20 mg daily. 2. Wellbutrin XL daily. 3. Citalopram daily. 4. Decadron 4 mg b.i.d. 5. Hydrocodone p.r.n. 6. Keppra b.i.d. 7. Ativan p.r.n. 8. Losartan daily. 9. Namenda b.i.d. 10. Prilosec b.i.d. 11. K-Dur 20 mEq daily. 12. Tramadol p.r.n. FAMILY HISTORY: Two aunts with breast cancer. SOCIAL HISTORY: . No children. Lives with her spouse. No alcohol, tobacco, or illicit drug use. REVIEW OF SYSTEMS: Negative except for noted in HPI. PHYSICAL EXAMINATION: VITAL SIGNS: Temperature is 99.0, pulse is 94, respiratory rate 18, BP is 111/55, and she is 93% on room air. GENERAL: This is a chronically ill-appearing female, in no acute distress. HEENT: Normocephalic and atraumatic. Pupils are equal and reactive to light. NECK: Supple. CV: Regular rate and rhythm. LUNGS: She has crackles at the posterior bases. ABDOMEN: Soft and nontender. Bowel sounds are positive. EXTREMITIES: No clubbing, cyanosis, or edema. SKIN: No rash. HEMATOLOGIC: No petechiae or purpura. NEUROLOGIC: She has left lower extremity weakness and mild left lower extremity weakness. PERTINENT LABS AND X-RAYS: Current WBCs are 5.2, hemoglobin 11.1, hematocrit 32.7, and platelet count is a 145,000. She has 72% neutrophils, 14% bands, and 11% lymphocytes. Sodium is 138, potassium 3.5, chloride 108, CO2 is 20, BUN is 20, creatinine 0.94, lactic acid 0.9, calcium 7.8, bilirubin is 0.6, AST is 21, ALT is 27, and alkaline phosphatase is 89. Creatine kinase is 40. Troponin is negative. Serum total protein 6.7, albumin 3.8, and globulin 2.9. Chest x-ray per HPI. ASSESSMENT: 1. Metastatic breast cancer. 2. Febrile illness. DISCUSSION: The patient has been started on antibiotics and is feeling better. She has had no fever since admission. She has recently been switched from Herceptin to Kadcyla in the hopes of achieving a [employer]CEIV[employer] response. She should continue her Decadron 4 mg b.i.d. for neurological symptoms and can be titrated down over the next week or so. We will follow along with her hospitalization. Thank you for the consult. Job ID: [id number]
[2018-11-19 14:27] LABS: Strep pneumo Urine Ag NEGATIVE (NEGATIVE)
--- NOTE | 2018-11-19 16:04 | ULT ---
Exam: Soft tissue ultrasound HISTORY: Boil underneath the left buttock x2-3 weeks. Comparison none TECHNIQUE: Targeted sonographic imaging demonstrates irregular echotexture, in the region of concern. This irregular echotexture focus measures 0.5 x 1.4 cm. Focal area of induration and phlegmonous klaudia nge is favored. A drainable abscess is not appreciated. There is edema in the adjacent soft tissues. IMPRESSION: Soft tissue findings as above suggesting focal induration and phlegmonous change. A drain able abscess is currently not appreciated.
[2018-11-19] MEDS: Atorvastatin Calcium 10 MG TAB PO SCH (21:07)
[2018-11-20 04:30] LABS: #Lymphocytes 0.5 thou/uL (1.20-3.40); #Monocytes 0.2 thou/uL (0.11-0.59); #Neutrophils 3.2 thou/uL (1.40-6.50); %Eosinophils 0.2 % (0.0-10.0); %Monocytes 6.2 % (0.0-10.0); %Neutrophils 80.6 % (42.0-75.0); Hemoglobin 11.6 g/dL (12.0-16.0); Mean Corpuscular HGB CONC 33.8 g/dL (32.0-36.0); Mean Corpuscular Hemoglobin 29.9 pg (27.0-31.0); Mean Corpuscular Volume 88.7 fL (78.0-98.0); Mean Platelet Volume 7.1 fL (7.4-10.4); Platelet Count 157 thou/uL (130-400); Red Blood Cell (RBC) Count 3.87 mill/uL (4.20-5.40); White Blood Cell (WBC) Count 3.9 thou/uL (4.8-10.8)
[2018-11-20 04:58] LABS: Anion Gap 12 mmol/L (10-20); BUN (Urea Nitrogen) 11 mg/dL (7.0-18.7); Calc. Creatinine Clearance 110 mL/min (70-130); Calcium 9.1 mg/dL (7.8-10.44); Carbon Dioxide 29 mmol/L (22-29); Chloride 105 mmol/L (98-107); Estimated GFR-MDRD 74; Glucose 151 mg/dL (70-105); Potassium 4.6 mmol/L (3.5-5.1); Sodium 141 mmol/L (136-145)
[2018-11-20] MEDS: Piperacillin/Tazobactam 3.375 GM in Sodium Chloride 0.9% 100 ML IVPB SCH ×3 (05:11→18:22)
--- NOTE | 2018-11-20 06:32 | PDOC.FM ---
- Subjective Subjective: Overnight patient had an episode of HTN and bradycardia. The patient was asymptomatic when these vitals were drawn and was resting at the time. The patient was not given her losartan yesterday. This morning, the patient states that she is feeling better, stronger. Denies fever/chills, endorses cough. - Objective MAR Reviewed: Yes Vital Signs & Weight: Vital Signs (12 hours) Temp Pulse Resp BP BP BP Pulse Ox 11/20/18 04:00 97.6 F 48 L 16 174/86 H 174/86 H 98 11/20/18 01:05 52 L 16 164/76 H 11/19/18 23:35 97.7 F 56 L 16 172/74 H 98 11/19/18 22:22 64 11/19/18 20:00 98.9 F 50 L 16 157/75 H 98 Weight Admit Weight 81.193 kg Weight 81.193 kg I&O: 11/18/18 11/19/18 11/20/18 06:59 06:59 06:59 Intake Total 2880 Balance 2880 Result Diagrams: 11/20/18 04:13 11/20/18 04:13 Phys Exam - Physical Examination Constitutional: NAD HEENT: PERRLA, moist MMs, sclera anicteric Neck: full ROM Respiratory: clear to auscultation bilateral Cardiovascular: RRR, no significant murmur, no rub Gastrointestinal: soft, non-tender, no distention, positive bowel sounds Neurological: moves all 4 limbs Psychiatric: normal affect, A&O x 3 Skin: no rash, normal turgor, cap refill <2 seconds Deviation from normal: wound care bandage over area of cellulitis Dx/Plan (1) Breast cancer metastasized to brain Code(s): C50.919 - MALIGNANT NEOPLASM OF UNSP SITE OF UNSPECIFIED FEMALE BREAST ; C79.31 - SECONDARY MALIGNANT NEOPLASM OF BRAIN Status: Acute (2) HLD (hyperlipidemia) Code(s): E78.5 - HYPERLIPIDEMIA, UNSPECIFIED Status: Acute (3) HTN (hypertension) Code(s): I10 - ESSENTIAL (PRIMARY) HYPERTENSION Status: Acute (4) Pneumonia Code(s): J18.9 - PNEUMONIA, UNSPECIFIED ORGANISM Status: Acute (5) Sepsis Code(s): A41.9 - SEPSIS, UNSPECIFIED ORGANISM Status: Acute - Plan Plan: 47 yo F with ductal CA of breast with mets to brain admitted for sepsis 2/2 PNA vs. cellulitis Sepsis 2/2 PNA vs. cellulitis vs URI Febrile & tachycardic in ED. No white count however on immunomodulating therapy & chemo. clinical dx of PNA or cellulitis as possible sources; PNA less likely at this time. Cellulitis, wound growing MSSA s/p tx w/ clindamycin. - Differential: PNA: CXR: no acute findings, lungs are clear on auscultation; Cellulitis: pt w/ abscess that was drained in clinic 2 weeks ago and tx w/ abx, US don 11/19 showing no drainable abscess; URI: pt w/ cough, congestion, febrile on admission but no afebrile, immunosupressed - Pending wound & blood culture. Blood cx no growth to date. - Pending UA/UCx - s/p vanc & zosyn in ED- continue zosyn only, since cx grew MSSA - Will give tessalon for cough MARISABEL on CKD Likely due to decreased po intake - IVF, Cr improved HER2+ Invasive ductal CA with mets to brain - Courtesy consult Dr. Hinton, they are following patient. Will touch base with them 11/20 to discuss plan. SLE - MD aware, continue home meds HTN - Will restart home meds as Cr improved HLD - Continue home meds diet: CC/HH dvt ppx: lovenox gi ppx: home omeprazole code: full dispo: likely dc in 1-2 days Addendum - Attending - Attending Attestation Date/Time: 11/20/18 9422 I personally evaluated the patient and discussed the management with Dr. Bass I agree with the History, Examination, Assessment and Plan documented above with any addition or exceptions noted below. Patient with concern for discharge endorsing fears and not being stable for dismissal
[2018-11-20] MEDS: Lactated Ringer's 1,000 ML IV SCH (07:50)
[2018-11-20 08:31] LABS: Bilirubin Negative (Negative); Blood, Urine Moderate (Negative); Clarity CLEAR (Clear); Glucose, Urine (Dipstick) Negative (Negative); Leukocyte Negative (Negative); Nitrite Negative (Negative); Protein, Urine (Dipstick) Negative (Neg-Trace); Specific Gravity, Urine 1.014 (1.002-1.036); pH, Urine 5.5 (5.0-9.0)
[2018-11-20 08:32] LABS: Bacteria/HPF None Seen HPF (None Seen); Hyaline Casts/LPF 0-3 HYALINE CAST LPF (0-3 Hyaline); RBC/HPF 0-3 HPF (0-3); Squamous Epithelial None Seen HPF (0-3); WBC/HPF 0-3 HPF (0-3)
[2018-11-20] MEDS: Enoxaparin Sodium 40 MG/0.4 ML SYRINGE SC SCH (08:40)
[2018-11-20] MEDS: Dexamethasone 4 MG TAB PO SCH ×2 (08:41→20:23)
[2018-11-20] MEDS: Potassium Chloride 20 MEQ TAB PO SCH (08:41)
[2018-11-20] MEDS: levETIRAcetam 500 MG TAB PO SCH ×2 (08:41→20:23)
[2018-11-20] MEDS: traMADol HCl 50 MG TAB PO PRN ×2 (08:42→15:33)
[2018-11-20] MEDS: Bupropion 150 MG XL TAB PO SCH (08:42)
[2018-11-20] MEDS: Citalopram 20 MG TAB PO SCH (08:42)
[2018-11-20] MEDS: Fluticasone Propionate Nasal Spray 16 gm Bottle NASAL SCH (08:48)
[2018-11-20] MEDS: Potassium Chloride 10 MEQ TAB PO SCH (09:53)
[2018-11-20] MEDS: Losartan 25 MG TAB PO SCH (10:38)
--- NOTE | 2018-11-20 13:20 | PQF ---
TENA IRELANDELLIOTTIN *r [id number] [id number] CLINICAL DOCUMENTATION IMPROVEMENT CLARIFICATION FORM: ICD-10 Updated PLEASE DO AN ADDENDUM TO THE PROGRESS NOTE WITH ANY DOCUMENTATION UPDATES OR ADDITIONS AND CARRY THROUGH TO DC SUMMARY. THANK YOU. DATE: 11/20/2018 ATTN: DR. Harinder HERNANDEZ Please exercise your independent, professional judgment in responding to the clarification form. Clinical indicators are provided on the bottom of this form for your review. Please check appropriate box(s): [ ] Aspiration Pneumonia [ ] Empirically treating Gram Negative Pneumonia [ X ] Simple Pneumonia (community acquired - nosocomial) [ ] Other diagnosis [ ] Unable to determine In addition, please specify: Present on Admission (POA): [X ] Yes [ ] No [ ] Unable to determine For continuity of documentation, please document condition throughout progress notes and discharge summary. Thank You. CLINICAL INDICATORS - SIGNS / SYMPTOMS / LABS 11/18 ED : PT PRESENTED TO ED FOR EVALUATION OF FEVER, REPORTS COUGH FOR 1 WEEK, TEMP 100.5 11/18 H & P (FERNANDEZ) A/P 2). PNEUMONIA -ACUTE, UNSPECIFIED 11/19 PN (MARY) DX/PLAN 4) PNEUMONIA- ACUTE, UNSPECIFIED 11/20 PN (MARY) DX/PLAN) 4) PNAUMONIA- ACUTE, UNSPECIFIED; SEPSIS 2/2 PNA VS CELLULITIS VS URI: FEBRILE TACHYCARDIA IN ED. NO WHITE COUNT HOWEVER ON IMMUNOMODULATING THERAPY AND CHEMO. CLINICAL DX OF PNA OR CELLULITIS POSSIBLE SOURCES; PNA LESS LIKELY AT THIS TIME. CELLULITIS , WOUND GROWING MSSA S/P TX W/ CLINDAMYCIN. RISK: METASTATIC BREAST CA TO BRAIN CHEMOTHERAPY PATIENT TREATMENT ZOSYN IV ( 11/18-PRESENT) OXYGEN THERAPY (11/18 - PRESENT) THANK YOU! NADIA (This form is maintained as a part of the permanent medical record) 2014 [employer] All Rights Reserved SENAIT [email or web address] [phone] MTDD
--- NOTE | 2018-11-20 13:39 | PQF ---
TENA IRELANDELLIOTTIN *r [id number] [id number] [id number] CLINICAL DOCUMENTATION IMPROVEMENT CLARIFICATION FORM: ICD-10 Updated PLEASE DO AN ADDENDUM TO THE PROGRESS NOTE WITH ANY DOCUMENTATION UPDATES OR ADDITIONS AND CARRY THROUGH TO DC SUMMARY. THANK YOU. DATE: 11/20/2018 ATTN: DR. Harinder HERNANDEZ Please exercise your independent, professional judgment in responding to the clarification form. Clinical indicators are provided on the bottom of this form for your review. Please check appropriate box(s) to clarify if the following diagnosis has been ruled in or ruled out: CELLULITIS [x ] Ruled in diagnosis [x ] Continue to treat [ ] Resolved [ ] Ruled out diagnosis [ ] Other diagnosis [ ] Unable to determine In addition, please specify: Present on Admission (POA): [x ] Yes [ ] No [ ] Unable to determine For continuity of documentation, please document condition throughout progress notes and discharge summary. Thank You. CLINICAL INDICATORS - SIGNS / SYMPTOMS / LABS 11/18 PT PRESENTS TO ED FOR EVALUATION OF FEVER ED PHYSICIAN DX SEPSIS , CELLULITIS 11/18 H & P (REBECCA) PT RECENTLY HAD A LEFT GLUTEAL ABSCESS DRAINED 5 DAYS AGO , COMPLETED ABX COURSE. DENIES NOTICING ANY DRAINAGE. CULTURE FROM THAT SAMPLE HAS GROWN OUT MSSA. PLAN: SEPSIS 2/2 PNA VS CELLULITIS 11/19 PN (MARY) PLAN : CLINICAL DX OF PNA OR CELLULITIS POSSIBLE SOURCES OF SEPSIS, PNA LESS LIKELY AT THIS TIME, CELLULITIS , WOUND GROWING MSSA 11/20 PN (MARY) PLAN- CELLULITIS : PT W/ ABSCESS THAT WAS DRAINED IN CLINIC 2 WEEKS AGO AND TX W / ABX, US DONE 11/19 SHOWING NO DRAINABLE ABSCESS. RISK: CHEMOTHERAPY PATIENT RECENT ABSCESS DRAINAGE IN CLINIC TREATMENTS: TREATING WITH ( ZOSYN 11/18-PRESENT) ONLY WOUND CARE CONSULT THANK YOU ! NADIA (This form is maintained as a part of the permanent medical record) 2014 [email or web address] All Rights Reserved SENAIT [phone] MTDNoelle
[2018-11-20] MEDS ORDERED: Cephalexin 250 MG CAP PO SCH (15:00)
[2018-11-20] MEDS ORDERED: Cephalexin 250 MG/5 ML Oral Suspension PO SCH (15:00)
[2018-11-20] MEDS: Benzonatate 100 MG CAP PO PRN (15:33)
[2018-11-20] MEDS: HYDROcodone/Acetaminophen 10/325 mg Tablet PO PRN (18:33)
[2018-11-20] MEDS: Lorazepam 0.5 MG TAB PO PRN (18:33)
[2018-11-20] MEDS: Atorvastatin Calcium 10 MG TAB PO SCH (20:24)
[2018-11-20] MEDS: guaiFENesin 200 MG TAB PO PRN (21:27)
[2018-11-20] MEDS: Docusate 100 MG CAP PO PRN (21:27)
[2018-11-21] MEDS: hydrALAZINE 20 MG/ML VIAL SLOW IVP PRN ×2 (00:39→17:03)
[2018-11-21] MEDS: Piperacillin/Tazobactam 3.375 GM in Sodium Chloride 0.9% 100 ML IVPB SCH ×2 (00:43→06:02)
[2018-11-21 04:18] LABS: #Lymphocytes 0.6 thou/uL (1.20-3.40); #Monocytes 0.4 thou/uL (0.11-0.59); #Neutrophils 5.5 thou/uL (1.40-6.50); %Basophils 0.2 % (0.0-1.0); %Eosinophils 0.3 % (0.0-10.0); %Lymphocytes 9.6 % (21.0-51.0); %Monocytes 6.1 % (0.0-10.0); %Neutrophils 83.7 % (42.0-75.0); Hemoglobin 12.1 g/dL (12.0-16.0); Mean Corpuscular HGB CONC 33.8 g/dL (32.0-36.0); Mean Corpuscular Hemoglobin 30.1 pg (27.0-31.0); Mean Platelet Volume 7.3 fL (7.4-10.4); Platelet Count 186 thou/uL (130-400); Red Blood Cell (RBC) Count 4.01 mill/uL (4.20-5.40); White Blood Cell (WBC) Count 6.5 thou/uL (4.8-10.8)
[2018-11-21 04:39] LABS: Anion Gap 13 mmol/L (10-20); BUN (Urea Nitrogen) 14 mg/dL (7.0-18.7); Calc. Creatinine Clearance 118 mL/min (70-130); Calcium 9.3 mg/dL (7.8-10.44); Carbon Dioxide 29 mmol/L (22-29); Chloride 103 mmol/L (98-107); Estimated GFR-MDRD 81; Glucose 218 mg/dL (70-105); Potassium 4.5 mmol/L (3.5-5.1); Sodium 140 mmol/L (136-145)
--- NOTE | 2018-11-21 07:05 | PDOC.FM ---
- Subjective Subjective: Overnight, patient had high BP as high as 208/96 and low HR of 57. She was given one dose of hydralazine with resolution in BP and HR to within normal range. Patient asymptomatic throughout this time. On exam this morning, the patient sitting up comfortably in bed. This morning patient states that she feels better and a slightly stronger this AM. She states she has been tolerating PO and ambulating. - Objective Vital Signs & Weight: Vital Signs (12 hours) Temp Pulse Resp BP BP BP BP 11/21/18 03:47 97.6 F 57 L 16 161/79 H 11/21/18 01:38 65 16 122/71 11/21/18 01:35 65 122/71 11/21/18 00:39 50 L 194/96 H 11/20/18 23:49 97.6 F 52 L 16 208/96 H 11/20/18 20:15 11/20/18 20:00 98.3 F 69 16 139/73 Pulse Ox 11/21/18 03:47 97 11/21/18 01:38 11/21/18 01:35 11/21/18 00:39 11/20/18 23:49 93 L 11/20/18 20:15 95 11/20/18 20:00 95 Weight Admit Weight 81.193 kg Weight 81.193 kg I&O: 11/20/18 11/21/18 11/22/18 06:59 06:59 06:59 Intake Total 3830 1560 Balance 3830 1560 Result Diagrams: 11/21/18 04:08 11/21/18 04:08 Phys Exam - Physical Examination Constitutional: NAD HEENT: PERRLA, moist MMs, sclera anicteric Neck: full ROM Respiratory: clear to auscultation bilateral Cardiovascular: RRR, no significant murmur, no rub Gastrointestinal: positive bowel sounds Musculoskeletal: pulses present Neurological: moves all 4 limbs Psychiatric: normal affect, A&O x 3 Skin: no rash, normal turgor, cap refill <2 seconds Dx/Plan (1) Breast cancer metastasized to brain Code(s): C50.919 - MALIGNANT NEOPLASM OF UNSP SITE OF UNSPECIFIED FEMALE BREAST ; C79.31 - SECONDARY MALIGNANT NEOPLASM OF BRAIN Status: Acute (2) HLD (hyperlipidemia) Code(s): E78.5 - HYPERLIPIDEMIA, UNSPECIFIED Status: Acute (3) HTN (hypertension) Code(s): I10 - ESSENTIAL (PRIMARY) HYPERTENSION Status: Acute (4) Sepsis Code(s): A41.9 - SEPSIS, UNSPECIFIED ORGANISM Status: Acute (5) SHELLY (obstructive sleep apnea) Code(s): G47.33 - OBSTRUCTIVE SLEEP APNEA (ADULT) (PEDIATRIC) Status: Acute - Plan Plan: 47 yo F with ductal CA of breast with mets to brain admitted for sepsis 2/2 PNA vs. cellulitis Sepsis 2/2 cellulitis vs URI Febrile & tachycardic in ED. No white count however on immunomodulating therapy & chemo. clinical dx of PNA or cellulitis as possible sources; PNA less likely at this time. Cellulitis, wound growing MSSA s/p tx w/ clindamycin. - Differential: PNA: CXR: no acute findings, lungs are clear on auscultation; Cellulitis: pt w/ abscess that was drained in clinic 2 weeks ago and tx w/ abx, US don 11/19 showing no drainable abscess; URI: pt w/ cough, congestion, febrile on admission but no afebrile, immunosupressed - Blood cx no growth to date. - Pending UA/UCx - s/p vanc & zosyn in ED- continue zosyn only, since cx grew MSSA. Will transition to PO Keflex today for a 10 day course. 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 Hinton, they are following patient. Will touch base with them 11/20 to discuss plan. SLE - MD aware, continue home meds HTN - Will restart home meds as Cr improved HLD - Continue home meds diet: CC/HH dvt ppx: lovenox gi ppx: home omeprazole code: full dispo: likely dc today or tomorrow Addendum - Attending - Attending Attestation Date/Time: 11/21/18 2046 I personally evaluated the patient and discussed the management with Dr. Bass I agree with the History, Examination, Assessment and Plan documented above with any addition or exceptions noted below. Discussed at length initial concern with R/O sepsis and neg CXR neg procalcitonin neg U/A culture results no active abscess to right posterior thigh HX MSSA converted PO keflex today. Patient with elevated BP at HS and relative bradycardia will add BP RX at HS. Patient history c/w SHELLY ; daytime somnolence,heavy snoring and questionable apneic episodes per spouse. Today attending rounds visiting at length alongside Palliative care . Patient requesting to review all her lab work in permanent printed form with paranoid feeling regard potential of changing/manipulating labs on EMR. 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 Suggest trial CPAP and proceed with outpatient Sleep study Patient should be able to transition home in AM as off work and able to provide care. Patient would benefit from outpatient counseling to further explore her feeling given her Diagnosis and refractory metastatic breast CA.
[2018-11-21] MEDS: Bupropion 150 MG XL TAB PO SCH (08:59)
[2018-11-21] MEDS: Dexamethasone 4 MG TAB PO SCH ×2 (09:00→20:37)
[2018-11-21] MEDS: Citalopram 20 MG TAB PO SCH (09:00)
[2018-11-21] MEDS: levETIRAcetam 500 MG TAB PO SCH ×2 (09:00→20:37)
[2018-11-21] MEDS: Potassium Chloride 10 MEQ TAB PO SCH (09:00)
[2018-11-21] MEDS: Cephalexin 250 MG CAP PO SCH ×3 (09:00→20:36)
[2018-11-21] MEDS: Enoxaparin Sodium 40 MG/0.4 ML SYRINGE SC SCH (09:01)
[2018-11-21] MEDS: Benzonatate 100 MG CAP PO PRN ×2 (09:02→12:51)
[2018-11-21 09:06] LABS: Hemoglobin A1c 6.7 % (4.0-6.0)
[2018-11-21] MEDS: Losartan 25 MG TAB PO SCH ×3 (09:37→23:03)
[2018-11-21] MEDS: Fluticasone Propionate Nasal Spray 16 gm Bottle NASAL SCH (12:46)
[2018-11-21] MEDS: Lorazepam 0.5 MG TAB PO PRN ×2 (12:49→22:08)
[2018-11-21] MEDS: traMADol HCl 50 MG TAB PO PRN (12:49)
[2018-11-21] MEDS: Atorvastatin Calcium 10 MG TAB PO SCH (20:36)
[2018-11-21] MEDS: guaiFENesin 200 MG TAB PO PRN (22:58)
[2018-11-22] MEDS: traMADol HCl 50 MG TAB PO PRN ×2 (04:01→12:07)
--- NOTE | 2018-11-22 06:23 | PDOC.FM ---
- Subjective Subjective: NAEO. Patient feels better and strong this morning. She states she feels prepared to go home. patient used CPAP last night and was able to tolerate it most of the time. SHe states she will get outpatient sleep study. - Objective MAR Reviewed: Yes Vital Signs & Weight: Vital Signs (12 hours) Temp Pulse Resp BP Pulse Ox 11/22/18 03:51 68 171/89 H 11/22/18 00:00 96 11/21/18 23:49 72 16 94 L 11/21/18 23:00 97.2 F L 73 16 142/78 H 11/21/18 20:00 98.0 F 95 16 107/57 L 96 Weight Admit Weight 81.193 kg Weight 81.193 kg I&O: 11/20/18 11/21/18 11/22/18 06:59 06:59 06:59 Intake Total 3830 1560 960 Balance 3830 1560 960 Result Diagrams: 11/21/18 04:08 11/21/18 04:08 Phys Exam - Physical Examination Constitutional: NAD HEENT: PERRLA, moist MMs, sclera anicteric Neck: supple, full ROM Respiratory: clear to auscultation bilateral Cardiovascular: RRR, no significant murmur, no rub Gastrointestinal: soft, non-tender, no distention, positive bowel sounds Neurological: moves all 4 limbs Psychiatric: normal affect, A&O x 3 Skin: no rash, normal turgor, cap refill <2 seconds Dx/Plan (1) Breast cancer metastasized to brain Code(s): C50.919 - MALIGNANT NEOPLASM OF UNSP SITE OF UNSPECIFIED FEMALE BREAST ; C79.31 - SECONDARY MALIGNANT NEOPLASM OF BRAIN Status: Acute (2) HLD (hyperlipidemia) Code(s): E78.5 - HYPERLIPIDEMIA, UNSPECIFIED Status: Acute (3) HTN (hypertension) Code(s): I10 - ESSENTIAL (PRIMARY) HYPERTENSION Status: Acute (4) Sepsis Code(s): A41.9 - SEPSIS, UNSPECIFIED ORGANISM Status: Acute (5) SHELLY (obstructive sleep apnea) Code(s): G47.33 - OBSTRUCTIVE SLEEP APNEA (ADULT) (PEDIATRIC) Status: Acute - Plan Plan: 47 yo F with ductal CA of breast with mets to brain admitted for sepsis 2/2 PNA vs. cellulitis Sepsis 2/2 cellulitis vs URI Febrile & tachycardic in ED. No white count however on immunomodulating therapy & chemo. clinical dx of PNA or cellulitis as possible sources; PNA less likely at this time. Cellulitis, wound growing MSSA s/p tx w/ clindamycin. - Differential: PNA: CXR: no acute findings, lungs are clear on auscultation; Cellulitis: pt w/ abscess that was drained in clinic 2 weeks ago and tx w/ abx, US don 11/19 showing no drainable abscess; URI: pt w/ cough, congestion, febrile on admission but no afebrile, immunosupressed - Blood cx no growth to date. UA neg for infection. - s/p vanc & zosyn in ED- continue zosyn only, since cx grew MSSA. Day 2 of Keflex - need to complete 10 day course of abx total. 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 Hinton, they are following patient. - Pt requesting counseling referral outpatient. SLE - MD aware, continue home meds HTN - Will restart home meds as Cr improved HLD - Continue home meds diet: CC/HH dvt ppx: lovenox gi ppx: home omeprazole code: full dispo: likely dc today Addendum - Attending - Attending Attestation Date/Time: 11/22/18 3596 I personally evaluated the patient and discussed the management with Dr. Bass. I agree with the History, Examination, Assessment and Plan documented above with any addition or exceptions noted below. Stable for d/c home today with close o/p follow-up
[2018-11-22 08:48] VITALS: BP 120/78; TEMP 98.3
[2018-11-22] MEDS: Cephalexin 250 MG CAP PO SCH (08:56)
[2018-11-22] MEDS: Benzonatate 100 MG CAP PO PRN (08:56)
[2018-11-22] MEDS: Docusate 100 MG CAP PO PRN (08:57)
[2018-11-22] MEDS: Potassium Chloride 10 MEQ TAB PO SCH (09:01)
[2018-11-22] MEDS: Bupropion 150 MG XL TAB PO SCH (09:01)
[2018-11-22] MEDS: Enoxaparin Sodium 40 MG/0.4 ML SYRINGE SC SCH (09:02)
[2018-11-22] MEDS: Citalopram 20 MG TAB PO SCH (09:02)
[2018-11-22] MEDS: Losartan 25 MG TAB PO SCH (09:02)
[2018-11-22] MEDS: Dexamethasone 4 MG TAB PO SCH (09:02)
[2018-11-22] MEDS: levETIRAcetam 500 MG TAB PO SCH (09:02)
[2018-11-22] MEDS: Fluticasone Propionate Nasal Spray 16 gm Bottle NASAL SCH (09:03)
--- NOTE | 2018-11-24 11:59 | DIS ---
DATE OF ADMISSION: 11/18/2018 DATE OF DISCHARGE: 11/22/2018 RESIDENT: Mariola Bass MD. ADMITTING ATTENDING: Chris Gerardo MD. DISCHARGE ATTENDING: Aurelia Boudreaux MD. CONSULTS: Palliative care, wound care, walking program. PROCEDURES: None. PRIMARY DIAGNOSES: 1. Sepsis, secondary to cellulitis versus viral upper respiratory infection. 2. Metastatic breast cancer. 3. Hyperlipidemia. 4. Hypertension. 5. Obstructive sleep apnea. DISCHARGE MEDICATIONS: 1. Keflex 750 mg oral 3 times daily. 2. Losartan 50 mg b.i.d. 3. Citalopram 40 mg every morning. 4. Lipitor 20 mg oral at bedtime. 5. Tramadol 50 mg oral every 6 hours as needed. 6. Ativan 0.5 mg oral as needed. 7. [place] 10/325 one each oral every 4 hours as needed. 8. Decadron 4 mg oral twice daily. 9. Keppra 500 mg oral twice daily. 10. K-Dur 20 mEq oral daily. 11. Omeprazole/sodium bicarb 20 mg oral twice daily. 12. Omeprazole 20 mg oral twice daily. 13. Memantine 10 mg oral twice daily. 14. Bupropion XL 150 mg oral every morning. DISCONTINUED MEDICATIONS: None. HISTORY OF PRESENT ILLNESS/HOSPITAL COURSE: This is a 47-year-old female with a history of breast cancer with METS to the brain, who presented to the ED with a cough. The patient said that the cough started 10 days ago. It was productive of green sputum and is associated with shortness of breath. The patient said her symptoms have not improved over this amount of time. The patient also endorsed subjective fevers at home, decreased p.o. intake, and rhinorrhea. The patient reports that she is receiving chemotherapy and immunotherapy for her breast cancer. The patient also recently had a left gluteal abscess that was drained about two weeks ago and completed a course of antibiotics. The patient has not noticed any drainage or worsening of that wound. The culture from that wound grew out MSSA. The patient's vital signs on presentation were temperature of 100.5, blood pressure 103/68, pulse 109, respirations 18, and saturating 97% on room air. The patient was admitted to Oncology inpatient. On physical exam, the patient was reported to have inspiratory crackles. The area of the previous abscess was inspected and was erythematous with no warmth, induration, or fluctuance. The patient's white count was 5.2 on presentation with no bandemia or neutrophil count. The patient's lactic acid was normal on presentation. The patient's chest x-ray showed no acute process. The patient's procalcitonin did down throughout her stay. The patient was given IV fluids and was started on Zosyn for possible cellulitis. An ultrasound of the wound showed no drainable abscess. UA was negative. The patient's oncologist is Dr. Hinton. They were called in, told that the patient was hospitalized. They rounded on the patient and had no further recommendations. The patient was transitioned to oral antibiotics on 11/21 and will complete a total 14-day course of antibiotics. The patient stated that she felt stronger and more stable on day of discharge and was ready to go home. The patient did have a discussion with palliative care throughout her stay. The patient states that she would like to have a referral for Psychology. This referral was placed through the clinic system and they will be contacting her to schedule that outpatient. On the night of 11/20/2018, the patient did have several episodes of hypertension as well as bradycardia. The patient was sleeping and asymptomatic at this time. The patient was started on BiPAP on the night of 11/21/2018, with resolution of bradycardia and one episode of high blood pressure. The patient remained asymptomatic during these periods. It is suspected that the patient most likely has obstructive sleep apnea. Outpatient sleep study is recommended. The patient's [place] Sleepiness Scale is 17. Neck circumference 41 cm. Referral was also placed for a sleep study outpatient through the clinic system. They will be contacting her for that referral. The patient remained afebrile throughout her stay. The patient's vital signs were normalized throughout her entire stay. The patient's A1c was 6.7, which would place the patient in the diabetic range. Lifestyle modifications were discussed with the patient. Starting metformin was also discussed with the patient. She declines to start metformin at this time and states she would like to just do lifestyle modifications. She states she will follow up with her PCP, discussed starting metformin and checking on her sugars. DISPOSITION: Stable. DISCHARGE INSTRUCTIONS: 1. Location: Home. 2. Activity: Ad samantha. 3. Diet: Regular. 4. Follow up with PCP, Dr. Youssef within 1 week. Job ID: [id number] MTDD
== END 2018-11-22 12:39 | disposition home or self-care (01) | DRG 871 ==
LOC: ERS 20:27 → ERHOLD 23:13 → ONC 11-19 00:29
PROVIDERS: ADMIT Family Medicine; ATTEND Family Medicine
PROC: 5A09357 Assistance with Respiratory Ventilation, Less than 24 Consecutive Hours, Continuous Positive Airway Pressure (ICD-10-PCS; principal; 2018-11-21)
DX: A41.9 Sepsis, unspecified organism (principal); J18.9 Pneumonia, unspecified organism; C79.31 Secondary malignant neoplasm of brain; N17.9 Acute kidney failure, unspecified; L03.116 Cellulitis of left lower limb; B95.61 Methicillin susceptible Staphylococcus aureus infection as the cause of diseases classified elsewhere; Y95 Nosocomial condition; M32.9 Systemic lupus erythematosus, unspecified; E78.5 Hyperlipidemia, unspecified; R73.03 Prediabetes; Z17.0 Estrogen receptor positive status [ER+]; C50.911 Malignant neoplasm of unspecified site of right female breast; I12.9 Hypertensive chronic kidney disease with stage 1 through stage 4 chronic kidney disease, or unspecified chronic kidney disease; N18.2 Chronic kidney disease, stage 2 (mild); G47.33 Obstructive sleep apnea (adult) (pediatric); J06.9 Acute upper respiratory infection, unspecified; R00.1 Bradycardia, unspecified; Z79.899 Other long term (current) drug therapy; Z92.21 Personal history of antineoplastic chemotherapy; Z88.2 Allergy status to sulfonamides; Z80.3 Family history of malignant neoplasm of breast; Z82.49 Family history of ischemic heart disease and other diseases of the circulatory system
CPT/HCPCS: 36415; 71046; 76999; 80048; 80053; 81001; 82550; 83036; 83605; 84145; 84484; 85025; 85652; 86140; 87040; 87086; 87633; 87804; 87899; 93005; 94660; J0360; J1650; J2405; J2543; J3370; J3490; J8540

== ENCOUNTER 2018-11-27 11:31 | Outpatient (CLI) | payer BC ==
--- NOTE | 2018-11-27 14:50 | NM ---
MUGA SCAN: HISTORY: Malignant neoplasm of lower inner quadrant of the right female breast. Encounter for follow-up examin ation after completed treatment for malignant neoplasm. RADIOPHARMACEUTICAL: 25 mCi technetium-99m labeled RBCs injected intravenously. FINDINGS: The left ventricular ejection fraction measures 68% (53% on 06/09/18). Wall motion is normal. IMPRESSION: LVEF is 68%. POS: KRISHNA
== END 2018-11-27 11:32 | disposition home or self-care (01) ==
LOC: NM 11:31
PROVIDERS: ATTEND Internal Medicine Hematology & Oncology
DX: C50.311 Malignant neoplasm of lower-inner quadrant of right female breast (principal); I51.7 Cardiomegaly
CPT/HCPCS: 78472; A9604

== ENCOUNTER 2018-12-09 20:30 | Outpatient (CLI) | payer BC | END 2018-12-09 20:31 | disposition home or self-care (01) | LOC: SLEEPLAB 20:30 | PROVIDERS: ATTEND Family Medicine | DX: G47.33 Obstructive sleep apnea (adult) (pediatric) (principal); I10 Essential (primary) hypertension; F32.9 Major depressive disorder, single episode, unspecified | CPT/HCPCS: 95810 ==

== ENCOUNTER 2018-12-31 13:55 | Outpatient (CLI) | payer BC ==
--- NOTE | 2019-01-01 00:30 | HP ---
HISTORY OF PRESENT ILLNESS: Ms. Eli Aguilar is a very pleasant 48-year-old, who presents to the [facility] for evaluation of a left buttock wound. The patient states that she developed an abscess of her left buttock, which was present for approximately 1-1/2 weeks prior to being opened by her physician. She states that after another week and a half, she was admitted to [facility] for sepsis. Upon the patient's discharge from [facility], the patient was referred to the Wound Center for further evaluation and treatment. The patient was being seen by her primary care provider, Dr. Yasmine Youssef. PAST MEDICAL HISTORY: 1. Chronic back pain, secondary to lupus flares. 2. Hypertension. 3. Lupus erythematosus. 4. Seasonal allergies. 5. Metastatic breast carcinoma, stage IV. 6. Diabetes mellitus. 7. Obstructive sleep apnea. PAST SURGICAL HISTORY: 1. Tooth extraction on 6 occasions. 2. Mediport placement x2. 3. Breast biopsy. MEDICATIONS: 1. Gabapentin. 2. Citalopram. 3. Atorvastatin. 4. Tramadol. 5. Losartan. 6. Omeprazole. 7. Potassium. 8. Namenda. 9. Keppra. 10. Prednisone. 11. Jordan. 12. Lorazepam. 13. Vitamin B12. 14. Jordan. 15. Tramadol. ALLERGIES: SULFA AND CITRIC ACID. SOCIAL HISTORY: Social history is negative for tobacco use. The patient admits to the consumption of 1 to 2 drinks per month. FAMILY HISTORY: Family history is significant for diabetes mellitus. The patient states that her mother, maternal grandmother, and paternal grandfather were all diagnosed with diabetes mellitus. Family history is also significant for coronary artery disease. The patient states that her mother and paternal grandmother were both diagnosed with coronary artery disease. PHYSICAL EXAMINATION: VITAL SIGNS: Temperature 98.2, pulse 84, and blood pressure 112/77. GENERAL: A 48-year-old female sitting on table in examination room, in no acute distress. HEENT: Normocephalic. NECK: No nuchal rigidity. CHEST: Clear to auscultation. CV: Regular rate and rhythm. ABDOMEN: Soft. EXTREMITIES: No clubbing or cyanosis. BACK: The wound of the left buttock has healed completely. ASSESSMENT AND PLAN: 1. Left buttock wound. As stated above, the wound of the left buttock has completely healed. The patient has been reassured that no open wound is present. Ms. Aguilar will be discharged from clinic today with followup on a p.r.n. basis. 2. Chronic back pain, secondary to lupus flares. 3. Hypertension. 4. Lupus erythematosus. 5. Seasonal allergies. 6. Metastatic breast carcinoma, stage IV. 7. Diabetes mellitus. 8. Obstructive sleep apnea. Job ID: [id number]
== END 2018-12-31 13:56 | disposition home or self-care (01) ==
LOC: WCC 13:55
PROVIDERS: ATTEND Family Medicine
DX: S31.829D Unspecified open wound of left buttock, subsequent encounter (principal); M54.9 Dorsalgia, unspecified; G89.29 Other chronic pain; I10 Essential (primary) hypertension; L93.0 Discoid lupus erythematosus; J30.2 Other seasonal allergic rhinitis; C50.919 Malignant neoplasm of unspecified site of unspecified female breast; E11.9 Type 2 diabetes mellitus without complications; G47.33 Obstructive sleep apnea (adult) (pediatric)

== ENCOUNTER 2019-01-15 10:17 | Outpatient (CLI) | payer BC ==
--- NOTE | 2019-01-15 15:59 | MRI ---
MRI BRAIN WITH AND WITHOUT CONTRAST: DATE: 01/15/2019. HISTORY: A 48-year-old female with C50.311, malignant neoplasm of lower inner quadrant of right female breast . Breast cancer metastatic to bone and brain. COMPARISON: Most recent MRI of 10/22/2018. TECHNIQUE: Multiple sequences obtained in axial, sagittal, and coronal planes; pre and post IV injection of gado linium-based contrast agent: 16 mL MultiHance. FINDINGS: Again noted is the very large number of small enhancing intraaxial metastatic lesions throughout the supratentorial brain, and some in the posterior fossa. All or almost all of these have significantly decreased in size. The vasogenic edema surrounding these lesions has also decreased in volume. As an example, the largest supratentorial intraaxial lesions at the right posterolateral upper fronta l lobe which previously measured approximately 1.6 x 1.9 x 1.3 cm, currently measures approximately 0 .9 x 0.9 x 0.7 cm, with respect to the enhancing component. The surrounding vasogenic edema (which w as the largest focal region of edema) has shrunk, although a moderate degree remains. The previously mentioned metastatic mass at the lateral periphery of the left corticomedullary juncti on involving what is probably the post central gyrus of the upper portion of the left parietal lobe, has also shrunk from previous measurements of approximately 1 x 1.2 x 1.1 cm, to current dimensions o f approximately 0.8 x 0.5 x 0.8 cm (axial image 44 of 151, series 102 for the right and left lesions) . In addition, there are confluent, broad regions of T2 hyperintense signal throughout much of the cent rum semiovale and chin radiata, not necessarily related to the individual metastatic lesions. Thes e probably represent accelerated chronic ischemic demyelination due to small-vessel disease, presumab ly related to whole brain external beam radiation therapy. There is no hemorrhage associated with any of these. Several of the lesions demonstrate high signal intensity on DWI sequence, but they may represent T2 shine-through rather than actual restricted diff usion. No hemorrhage. No mass effect, midline shift, or extraaxial fluid collection. IMPRESSION: 1. Large number of small intraaxial brain metastatic lesions. 2. These have decreased in size compared to 10/22/2018. 3. The vasogenic edema associated with these has also improved. 4. Moderate to severe chronic ischemic white matter changes due to microvascular atherosclerosis, pr obably due to whole brain radiation. LEWIS Alejandra POS: KRISHNA
== END 2019-01-15 10:18 | disposition home or self-care (01) ==
LOC: SCSMRI 10:17
PROVIDERS: ATTEND Internal Medicine Hematology & Oncology
DX: C50.311 Malignant neoplasm of lower-inner quadrant of right female breast (principal); C79.31 Secondary malignant neoplasm of brain; G93.6 Cerebral edema; I67.2 Cerebral atherosclerosis; I67.82 Cerebral ischemia
CPT/HCPCS: 70553

== ENCOUNTER 2019-01-22 20:30 | Outpatient (CLI) | payer BC | END 2019-01-22 20:31 | disposition home or self-care (01) | LOC: SLEEPLAB 20:30 | PROVIDERS: ATTEND Family Medicine | DX: G47.33 Obstructive sleep apnea (adult) (pediatric) (principal) | CPT/HCPCS: 95811 ==

== ENCOUNTER 2019-03-23 08:01 | Outpatient (CLI) | payer BC ==
--- NOTE | 2019-03-23 10:44 | MRI ---
MRI BRAIN WITH AND WITHOUT CONTRAST: HISTORY: Breast cancer. COMPARISON: 01/15/2019 FINDINGS: Gradient echo sequence: No hemorrhage. Calvarium: Appropriate T1 marrow signal intensity. Midline brain parenchyma: Unremarkable. Cerebrum: Redemonstration of extensive T2 and FLAIR white matter hyperintensity. The overall degree and distribution has not changed. Ventricles: No evidence of hydrocephalus. Stable configuration of the ventricular system. Sinuses and mastoid air cells: Adequate aeration. Diffusion: Central arterial flow is maintained. Absent restricted diffusion. Post contrast images: Extensive multifocal enhancing intraparenchymal foci involving the cerebrum an d cerebellum. There is evidence of a mixed response to therapy with a decrease in the size of a few of the parenchymal metastases. For example, the metastatic focus in the right frontal subcortica l white matter currently measures 0.6 x 0.4 cm (previously measuring 0.7 x 0.8 cm). A cortical enhancing focus involving the posterior left frontal lobe currently measures 0.6 x 0.4 cm (previously measuring 0.8 x 0.4 cm). There is evidence of a new metastatic deposit in the right thalamus, currently measuring 0.6 x 0.6 cm. IMPRESSION: Mixed response to therapy. Interval decrease in the size of the metastatic deposits; however, there is evidence of a new metastatic focus in the right thalamus. Results of study discussed with Dr. Hinton on 03/23/2019 at 10:43 a.m. CODE CR Transcribed Date/Time: 03/23/2019 11:13 AM
[2019-03-23] MEDS ORDERED: Gadobenate Dimeglumine 529 MG/1 ML (20ML VIAL) ONE (16:32)
== END 2019-03-23 08:02 | disposition home or self-care (01) ==
LOC: MRI 08:01
PROVIDERS: ATTEND Internal Medicine Hematology & Oncology
DX: C50.311 Malignant neoplasm of lower-inner quadrant of right female breast (principal); C79.31 Secondary malignant neoplasm of brain
CPT/HCPCS: 70553; A9577

== ENCOUNTER 2019-03-27 10:40 | Outpatient (CLI) | payer BC ==
--- NOTE | 2019-03-27 14:37 | NM ---
NUCLEAR MEDICINE MUGA SCAN: 03/27/19 HISTORY: Evaluation for treatment for malignant neoplasm of right breast. Examination is performed using 27 millicuries of 99m technetium tagged red blood cells. A left ventri cular ejection fraction of 57% was calculated. IMPRESSION: Left ventricular ejection fraction of 57%. POS: OFF
== END 2019-03-27 10:41 | disposition home or self-care (01) ==
LOC: NM 10:40
PROVIDERS: ATTEND Internal Medicine Hematology & Oncology
DX: C50.919 Malignant neoplasm of unspecified site of unspecified female breast (principal); D70.1 Agranulocytosis secondary to cancer chemotherapy
CPT/HCPCS: 78472; A9604

== ENCOUNTER 2019-05-05 07:33 | Outpatient (CLI) | payer BC ==
[2019-05-05] MEDS ORDERED: ISOVUE-370 76%-LOCM 1 ML ONE (08:59)
--- NOTE | 2019-05-05 09:29 | CT ---
EXAM: CT of the chest with contrast CT of the abdomen and pelvis with contrast HISTORY: Right breast cancer with liver, bone, and brain metastases COMPARISON: 06/02/2018, 01/20/2018 TECHNIQUE: 1. Multiple contiguous axial images were obtained in a CT the chest with contrast. Coronal and sagitt al reformats were performed. 2. Multiple contiguous axial images were obtained and a CT of the abdomen and pelvis with contrast. C oronal and sagittal reformats were performed. FINDINGS: CT CHEST: HEART: Normal in size without focal cardiac abnormality MEDIASTINUM: No hilar or mediastinal lymphadenopathy. LUNGS: No focal infiltrates, nodules, or masses. PLEURAL SPACE: No pneumothorax or pleural effusion. CHEST WALL SOFT TISSUES: There is a right-sided Mediport with its tip in the superior vena cava. CT ABDOMEN/PELVIS: ABDOMEN: LIVER: within normal limits. The previously seen liver lesions have resolved. BILE DUCTS: Normal caliber. GALLBLADDER: No calcified gallstones. Normal caliber wall. PANCREAS: within normal limits. SPLEEN: within normal limits. ADRENALS: within normal limits. KIDNEYS: within normal limits. PELVIS: REPRODUCTIVE ORGANS: No pelvic masses. URETERS: within normal limits. BLADDER: within normal limits. PERITONEUM: No ascites or free air, no fluid collection. BOWEL: Normal caliber. Scattered diverticula in the colon. MESENTERY AND RETROPERITONEUM: No enlarged mesenteric or retroperitoneal lymph nodes. VESSELS: Normal. ABDOMINAL WALL: within normal limits. OSSEOUS STRUCTURES: The previously seen lytic and sclerotic lesions have resolved with a normal appea preeti of the bone marrow in these locations. IMPRESSION: 1. Complete CT resolution of liver metastatic disease 2. Resolution of CT osseous metastatic disease. No suspicious osseous lesions are able to be identifi ed on this exam. 3. Diverticulosis
== END 2019-05-05 07:34 | disposition home or self-care (01) ==
LOC: BICCT 07:33
PROVIDERS: ATTEND Internal Medicine Hematology & Oncology
DX: C79.51 Secondary malignant neoplasm of bone (principal); C78.7 Secondary malignant neoplasm of liver and intrahepatic bile duct; C79.31 Secondary malignant neoplasm of brain; C50.311 Malignant neoplasm of lower-inner quadrant of right female breast; I70.0 Atherosclerosis of aorta
CPT/HCPCS: 71260; 74177; Q9966

== ENCOUNTER 2019-06-03 07:45 | Outpatient (CLI) | payer BC ==
--- NOTE | 2019-06-03 09:25 | MRI ---
MRI BRAIN WITH AND WITHOUT CONTRAST: 06/03/2019 CLINICAL HISTORY: Malignant neoplasm of lower inner quadrant right breast. COMPARISON: 03/23/2019 FINDINGS: Numerous enhancing intra-axial metastatic masses are again demonstrated throughout the cerebral paren chyma, both supratentorial and infratentorial in location as well as involving deep bustos nuclei. Multiple lesions have increased in volume. Overall number of lesions is grossly stable. There has als o been progression of vasogenic edema throughout each cerebral hemisphere. No midline shift. There is right greater than left mastoid fluid. IMPRESSION: Numerous intra-axial, supratentorial and infratentorial bilateral metastatic lesions are redemonstrat ed, numerous of which have increased in volume, compatible with progression of intracranial metastatic disease. Transcribed Date/Time: 06/03/2019 9:37 AM
== END 2019-06-03 07:46 | disposition home or self-care (01) ==
LOC: SCSMRI 07:45
PROVIDERS: ATTEND Internal Medicine Hematology & Oncology
DX: C50.311 Malignant neoplasm of lower-inner quadrant of right female breast (principal); C71.9 Malignant neoplasm of brain, unspecified
CPT/HCPCS: 70553